=== PATIENT | male | born 1970 | race Caucasian/White ===

== ENCOUNTER 2016-07-05 00:18 | Emergency (ER) | payer OTHER ==
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
[2016-07-05 02:51] VITALS: BP 125/74; PULSE 84; O2SAT 97
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
== END 2016-07-05 02:45 | disposition home or self-care (01) ==
LOC: ED 00:18
DX: S00.432A Contusion of left ear, initial encounter (principal); S06.0X0A Concussion without loss of consciousness, initial encounter; S01.312A Laceration without foreign body of left ear, initial encounter; R51 Headache; Y04.0XXA Assault by unarmed brawl or fight, initial encounter
CPT/HCPCS: 36000; 70450; 72125; 93041; 99284

== ENCOUNTER 2016-10-06 01:06 | Emergency (ER) | payer OTHER ==
[2016-10-06] MEDS ORDERED: Zofran 4 MG/2 ML VIAL IV ONE (01:28)
[2016-10-06] MEDS ORDERED: TORAdol 30 mg Injection IV ONE (01:28)
[2016-10-06] MEDS ORDERED: Sodium Chloride 0.9% 1000 ML 1,000 ML IV STA (01:28)
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
[2016-10-06] MEDS ORDERED: TORAdol 30 mg Injection ONE ×2 (01:35→01:36)
[2016-10-06] MEDS ORDERED: Zofran 4 MG/2 ML VIAL ONE (01:35)
[2016-10-06] MEDS ORDERED: Sodium Chloride 0.9% 1000 ML 1,000 ML ONE (01:36)
[2016-10-06 01:54] LABS: BASOPHIL % 0.2 % (0.0-0.4); Granulocytes % 44.2 % (36.0-66.0); Mean Cell Volume 100.6 fl (78-100); Monocytes % 11.6 % (0.0-12.0); Platelet Count 113 K/mm3 (150-450); Red Blood Count 5.45 M/mm3 (4.1-5.6); Red Cell Distribution Width 12.4 % (11.5-14.0); White Blood Count 8.6 K/mm3 (4.0-10.5)
[2016-10-06 02:00] LABS: Mean Corpuscular Hemoglobin 34.4 pg (26-32)
[2016-10-06 02:02] LABS: ADD URINE CULTURE? NO (NO); Bilirubin NEGATIVE (NEGATIVE); Blood 250 Ery/ul (0-5); COMPLETE URINE MICROSCOPIC? YES; Collection Type CLEAN CATCH; Epithelial Cells FEW /HPF (FEW); Glucose NEGATIVE (NEGATIVE); Leukocyte Esterase NEGATIVE (NEGATIVE)
[2016-10-06 02:20] LABS: ALBUMIN 3.8 g/dL (3.4-5.0); ALKALINE PHOSPHATASE 98 U/L (46-116); ANION GAP 15.7 MEQ/L (5-15); BLOOD UREA NITROGEN 9 mg/dL (9-20); CHLORIDE 104 mEq/L (98-107); Glucose 112 MG/DL (70-110); LIPASE 200 U/L (73-393); Potassium 3.3 mEq/L (3.5-5.1); SGOT/AST 40 U/L (15-37); SGPT/ALT 61 U/L (12-78); SODIUM 142 mEq/L (136-145); Total Protein 8.1 gm/dL (6.4-8.2)
[2016-10-06] MEDS ORDERED: Flomax 0.4 MG PO STA (02:46)
[2016-10-06] MEDS ORDERED: NORCO 5/325 MG PO ONE (02:46)
[2016-10-06] MEDS ORDERED: Flomax 0.4 MG ONE (03:03)
[2016-10-06] MEDS ORDERED: NORCO 5/325 MG ONE (03:03)
[2016-10-06 03:27] VITALS: BP 121/69; PULSE 75; O2SAT 99
--- NOTE | 2016-10-06 09:14 | XRAY ---
Indication: Left flank pain. Dark urine. Multiple contiguous axial images obtained through the abdomen and pelvis without contrast as ordered. Comparison: None Lung bases demonstrates minimal bilateral dependent atelectasis. Heart is not enlarged. There is a 5 mm left mid ureteral calculus, approximately L4 level. More proximal left ureter is prominent and there is mild/moderate hydronephrosis with minimal perinephric stranding and tiny perinephric fluid consistent with obstructive uropathy. Additional bilateral renal micro-calculi. Stomach is distended with food/fluid. Noncontrasted bowel loops appear nonobstructed. Mild descending/sigmoid diverticulosis. Normal appendix. No free fluid/air. Remaining liver, gallbladder, pancreas, spleen, adrenal glands, bladder, and aorta appear unremarkable for noncontrast exam. Osseous structures intact with lumbosacral junction degenerative disc disease. Impression: 1. 5 mm left midureteral calculus producing partial obstruction. Additional bilateral renal micro-calculi. 2. Mild colonic diverticulosis without diverticulitis. Comment: Preliminary interpretation was made by [facility]. No discrepancy. CT DI 17.03
== END 2016-10-06 03:27 | disposition home or self-care (01) ==
LOC: ED 01:06
DX: N20.2 Calculus of kidney with calculus of ureter (principal); R10.9 Unspecified abdominal pain
CPT/HCPCS: 36000; 36415; 74176; 80053; 81000; 83690; 85025; 96360; 96374; 96375; 99284; J1885; J2405; A9270-GY

== ENCOUNTER 2016-12-29 09:27 | Emergency (ER) | payer OTHER ==
--- NOTE | 2016-12-29 09:56 | ERPHSYRPT ---
- History of Present Illness Time Seen by Provider: 12/29/16 09:52 Source: patient, family Exam Limitations: no limitations Patient Subjective Stated Complaint: left sided back pain since last night, .no injury, has hx of chronic back pain,no fever, o difficullty urinating Triage Nursing Assessment: pt walked in, alert, resp easy, skin w/d Physician History: The patient is a 46-year-old male with his father complaining of left-sided low back pain that began last night while in bed. He is a poor historian. He has chronic low back pain. He said back surgeries. He takes only ibuprofen for back pain. He thinks he might have a kidney stone because he had a kidney stone 4 months ago. The kidney stone cause back pain at that time. His past medical history is significant for chronic back pain and kidney stone. His mother and father also had kidney stones. Timing/Duration: today Method of Injury: unknown Quality: sharp, aching Back Pain Location: lumbar spine, paraspinous muscles Severity of Pain-Max: moderate Severity of Pain-Current: moderate Modifying Factors: Improves With: pain medication Associated Symptoms: denies symptoms Previous symptoms: same symptoms as today Allergies/Adverse Reactions: morphine Allergy (Severe, Verified 12/29/16 09:31) BREATHING Home Medications: No Home Meds [No Home Meds] 1 [facility] 11/05/15 [History] Hx Tetanus, Diphtheria Vaccination/Date Given: Yes (2011) Hx Influenza Vaccination/Date Given: No Hx Pneumococcal Vaccination/Date Given: No Immunizations Up to Date: Yes - Review of Systems Constitutional: No Fever, No Chills Eyes: No Symptoms Ears, Nose, & Throat: No Symptoms Respiratory: No Cough, No Dyspnea Cardiac: No Chest Pain, No Edema, No Syncope Abdominal/Gastrointestinal: No Abdominal Pain, No Nausea, No Vomiting, No Diarrhea Genitourinary Symptoms: No Dysuria Musculoskeletal: Back Pain Skin: No Rash Neurological: No Dizziness, No Focal Weakness, No Sensory Changes Psychological: No Symptoms Endocrine: No Symptoms Hematologic/Lymphatic: No Symptoms Immunological/Allergic: No Symptoms All Other Systems: Reviewed and Negative - Past Medical History Pertinent Past Medical History: Yes Neurological History: No Pertinent History ENT History: No Pertinent History Cardiac History: No Pertinent History Respiratory History: No Pertinent History Endocrine Medical History: No Pertinent History Musculoskeletal History: Other GI Medical History: No Pertinent History History: No Pertinent History Psycho-Social History: No Pertinent History Male Reproductive Disorders: No Pertinent History Other Medical History: radicular syndrome lower limbs, mult concussions - Past Surgical History Past Surgical History: Yes Neuro Surgical History: No Pertinent History Cardiac: No Pertinent History Respiratory: No Pertinent History Gastrointestinal: No Pertinent History Genitourinary: No Pertinent History Musculoskeletal: Other Male Surgical History: No Pertinent History Other Surgical History: lower back surgery " shaved part of disc off" - Social History Smoking Status: Current every day smoker How long have you smoked: 33 YEARS Exposure to second hand smoke: Yes Drug Use: none Patient Lives Alone: No - Nursing Vital Signs Nursing Vital Signs: Initial Vital Signs Temperature 98.6 F 12/29/16 09:32 Pulse Rate 88 12/29/16 09:32 Respiratory Rate 16 12/29/16 09:32 Blood Pressure 119/93 12/29/16 09:32 O2 Sat by Pulse Oximetry 96 12/29/16 09:32 Pain Scale Pain Intensity [Back] 7 Pain Intensity 5 - Physical Exam General Appearance: mild distress Eye Exam: PERRL/EOMI, eyes nml inspection Ears, Nose, Throat Exam: normal ENT inspection Neck Exam: normal inspection, non-tender, supple, full range of motion, No meningismus, No midline tenderness Respiratory Exam: normal breath sounds, lungs clear, No respiratory distress Cardiovascular Exam: regular rate/rhythm, normal heart sounds Gastrointestinal Exam: soft, No tenderness, No mass Rectal Exam: not done Back Exam: decreased range of motion Extremity Exam: normal inspection, normal range of motion, No calf tenderness, No pedal edema Neurologic Exam: alert, oriented x 3, cooperative, train master II-XII nml as tested, normal mood/affect, nml station & gait, sensation nml, No motor deficits Skin Exam: normal color, warm, dry, No rash SpO2 Interpretation: normal SpO2: 96 Oxygen Delivery: Room Air - CT Exams Abdomen/Pelvis CT Interpretation: Tele-radiologist Report, Other (5 mm obstructing stone in mid left ureter with severe hydronephrosis per Dr Ribeiro.) Ordered Tests: Active Orders 24 hr Category Date Time Status IV Insertion STAT Care 12/29/16 10:34 Active ABDOMEN AND PELVIS W/0 CONTRAS [CT] Stat Exams 12/29/16 10:35 Completed BMP Stat Lab 12/29/16 10:58 Completed CBC W DIFF Stat Lab 12/29/16 10:58 Completed CULTURE,URINE Stat Lab 12/29/16 09:56 Received LIPASE Stat Lab 12/29/16 10:58 Completed UA W/ MICROSCOPIC Stat Lab 12/29/16 09:56 Completed Medication Summary Discontinued Medications Generic Name Dose Route Start Last Admin Trade Name Yvonne PRN Reason Stop Dose Admin Sodium Chloride 1,000 mls @ 999 mls/hr 12/29/16 10:34 12/29/16 11:09 Sodium Chloride 0.9% 1000 Ml IV 12/29/16 11:34 999 mls/hr .Q1H1M STA Administration Sodium Chloride Confirm 12/29/16 10:59 Sodium Chloride 0.9% 1000 Ml Administered 12/29/16 11:00 Dose 1,000 mls @ ud .ROUTE .STK-MED ONE Ketorolac Tromethamine 30 mg 12/29/16 10:34 12/29/16 11:09 Toradol 30 Mg Injection IV 12/29/16 10:35 30 mg STAT ONE Administration Ketorolac Tromethamine Confirm 12/29/16 10:59 Toradol 30 Mg Injection Administered 12/29/16 11:00 Dose 30 mg .ROUTE .STK-MED ONE Lab/Rad Data: Laboratory Result Diagrams 12/29/16 10:58 12/29/16 10:58 Laboratory Results 12/29/16 12/29/16 12/29/16 Range/Units 10:58 10:58 09:56 WBC 12.0 H (4.0-10.5) K/mm3 RBC 5.14 (4.1-5.6) M/mm3 Hgb 17.4 (12.5-18.0) gm/dl Hct 50.7 H (42-50) % MCV 98.6 (78-100) fl MCH 33.9 H (26-32) pg MCHC 34.3 (32-36) g/dl RDW 12.3 (11.5-14.0) % Plt Count 166 (150-450) K/mm3 MPV 12.1 H (6-9.5) fl Gran % 66.9 H (36.0-66.0) % Lymphocytes % 20.5 L (24.0-44.0) % Monocytes % 11.6 (0.0-12.0) % Eosinophils % 0.7 (0.00-5.0) % Basophils % 0.3 (0.0-0.4) % Basophils # 0.03 (0-0.4) Sodium 141 (136-145) mEq/L Potassium 4.3 (3.5-5.1) mEq/L Chloride 106 (98-107) mEq/L Carbon Dioxide 23.6 (21-32) mEq/L Anion Gap 15.7 H (5-15) MEQ/L BUN 12 (9-20) mg/dL Creatinine 1.29 (0.55-1.30) mg/dl Estimated GFR > 60 ML/MIN Glucose 107 (70-110) MG/DL Calcium 9.1 (8.5-10.1) mg/dL Lipase 167 (73-393) U/L Ur Collection Type VOID Urine Color YELLOW (YELLOW) Urine Appearance CLEAR (CLEAR) Urine pH 7.0 (5-6) Ur Specific Thurmond 1.010 (1.005-1.025) Urine Protein NEGATIVE (Negative) Urine Ketones NEGATIVE (NEGATIVE) Urine Blood 250 (0-5) Adrian/ul Urine Nitrite NEGATIVE (NEGATIVE) Urine Bilirubin NEGATIVE (NEGATIVE) Urine Urobilinogen NORMAL (0-1) mg/dL Ur Leukocyte Esterase TRACE (NEGATIVE) Urine Microscopic RBC 5-10 (0-2) /HPF Urine Microscopic WBC 5-10 (0-5) /HPF Ur Epithelial Cells FEW (FEW) /HPF Urine Bacteria FEW (NEGATIVE) /HPF Urine Glucose NEGATIVE (NEGATIVE) mg/dL Specimen Received 12/29/16 1000 - Progress Progress: improved Counseled pt/family regarding: lab results, diagnosis, rad results - Departure Time of Disposition: 11:50 Departure Disposition: Transfer (transfer to [facility] ER per Dr Bradley.) Clinical Impression: Ureteral stone with hydronephrosis Condition: Stable Critical Care Time: No Referrals: ADELE KITCHEN MD [Primary Care Provider] - Additional Instructions: You have a 5 mm stone in your left ureter that has caused severe hydronephrosis. You have been accepted for transfer at [facility] ER. You are to drive by private car to the ER. Do not have anything to eat or drink. While in the ER here, you were given Toradol 30 mg by IV.
[2016-12-29 10:18] LABS: Bilirubin NEGATIVE (NEGATIVE); Blood 250 Ery/ul (0-5); COMPLETE URINE MICROSCOPIC? YES; Collection Type VOID; Glucose NEGATIVE (NEGATIVE); Leukocyte Esterase TRACE (NEGATIVE)
[2016-12-29 10:25] LABS: ADD URINE CULTURE? YES (NO); Bacteria FEW /HPF (NEGATIVE); Epithelial Cells FEW /HPF (FEW)
[2016-12-29] MEDS ORDERED: Sodium Chloride 0.9% 1000 ML 1,000 ML IV STA (10:34)
[2016-12-29] MEDS ORDERED: TORAdol 30 mg Injection IV ONE (10:34)
[2016-12-29] MEDS ORDERED: Sodium Chloride 0.9% 1000 ML 1,000 ML ONE (10:59)
[2016-12-29] MEDS ORDERED: TORAdol 30 mg Injection ONE (10:59)
[2016-12-29 11:07] LABS: BASOPHIL % 0.3 % (0.0-0.4); Eosinophil % 0.7 % (0.00-5.0); Granulocytes % 66.9 % (36.0-66.0); Lymphocytes % 20.5 % (24.0-44.0); Mean Cell Volume 98.6 fl (78-100); Mean Corpuscular Hemoglobin 33.9 pg (26-32); Mean Platelet Volume 12.1 fl (6-9.5); Monocytes % 11.6 % (0.0-12.0); Platelet Count 166 K/mm3 (150-450); Red Blood Count 5.14 M/mm3 (4.1-5.6); Red Cell Distribution Width 12.3 % (11.5-14.0)
[2016-12-29 11:28] LABS: ANION GAP 15.7 MEQ/L (5-15); BLOOD UREA NITROGEN 12 mg/dL (9-20); CHLORIDE 106 mEq/L (98-107); Carbon Dioxide 23.6 mEq/L (21-32); Glucose 107 MG/DL (70-110); LIPASE 167 U/L (73-393); Potassium 4.3 mEq/L (3.5-5.1); SODIUM 141 mEq/L (136-145)
--- NOTE | 2016-12-29 11:34 | XRAY ---
Indication: Left posterior pain. Nausea and vomiting. History renal stones. Multiple contiguous axial images obtained through the abdomen and pelvis without contrast as using renal stone protocol ordered. Comparison: October 06, 2016. Lung bases again demonstrates minimal bilateral dependent atelectasis. Heart is not enlarged. Previous 5 mm left mid ureteral calculus has slightly moved distally now approximately S2 level, previously L4 level. Proximal left ureter remains prominent with increasing moderate hydronephrosis, increasing perinephric stranding, and increasing tiny perinephric fluid consistent with high-grade obstructive uropathy. There remains bilateral renal calculi. Stomach and noncontrasted bowel loops appear nonobstructed. Mild descending/sigmoid diverticulosis. Normal appendix. No free air. Remaining liver, gallbladder, pancreas, spleen, adrenal glands, bladder, and aorta appear unremarkable for noncontrast exam. Osseous structures intact with lumbosacral junction degenerative disc disease. Impression: 1. Again 5 mm left ureteral calculus which has slightly propagated distally producing high-grade obstruction with worsening hydronephrosis, perinephric stranding, and tiny perinephric fluid. Stable bilateral renal calculi. 2. Stable mild diverticulosis without diverticulitis. CT DI 22.78
[2016-12-29 11:47] VITALS: BP 138/96; PULSE 64; O2SAT 96
== END 2016-12-29 11:58 | disposition home or self-care (01) ==
LOC: ED 09:27
DX: N13.2 Hydronephrosis with renal and ureteral calculous obstruction (principal); M54.5 Low back pain
CPT/HCPCS: 36000; 36415; 74176; 80048; 81000; 83690; 85025; 87086; 96360; 96374; 99283; 99285; J1885

== ENCOUNTER 2021-07-29 08:14 | Observation (INO) | payer OTHER ==
--- NOTE | 2021-07-29 08:33 | ERPHSYRPT ---
- History of Present Illness Time Seen by Provider: 07/29/21 08:20 Historian: patient Exam Limitations: no limitations Patient Subjective Stated Complaint: Chest pain Triage Nursing Assessment: Patient ambulated back to ED and transferred self to bed. Patient A+O X 3. Patient's skin pink, warm and dry. Patient complains of left sided chest pain that started 1.5 hours ago while walking at work. Patient complains of constant aching pain 3/10 that goes down left shoulder/arm. Lungs clear a/p dorina. Patient is daily heavy drinker. Physician History: Patient is a 50-year-old male presents to our ED with complaints of left-sided chest pain. Patient states chest pain started approximately 1.5 hours prior to arrival. Patient was walking at work when pain started. Pain described as an ache at the left chest that tends to radiate to his left shoulder left arm. Pain rated 3 out of 10. Pain associated with dizziness and lightheadedness. Patient is a smoker and drinks alcoholic beverages regularly. No nausea or vom iting. No diaphoresis. No rash. Symptoms are mild to moderate in intensity. Activity worsens symptomology. Patient voices no other complaints or concerns at this time. Timing/Duration: today Activities at Onset: activity Quality: aching Location: other (Left chest) Chest Pain Radiation: arm Severity of Pain-Max: moderate Severity of Pain-Current: mild Modifying Factors: Improves With: other (Activity) Associated Symptoms: dizziness, No diaphoresis Prior Chest Pain/Cardiac Workup: no prior chest pain Nitro Today/Relief: no nitro taken today Aspirin Treatment Today: no aspirin today Allergies/Adverse Reactions: morphine Allergy (Severe, Verified 07/29/21 08:16) BREATHING Home Medications: No Home Meds [No Home Meds] 1 [facility] 11/05/15 [History] Amlodipine Besylate/Benazepril [Amlodipine-Benazepril 2.5-10] 1 tab PO DAILY 0 07/29/21 [History] Hx Tetanus, Diphtheria Vaccination/Date Given: Yes (2011) Hx Influenza Vaccination/Date Given: Yes Hx Pneumococcal Vaccination/Date Given: No Immunizations Up to Date: Yes Travel Risk - International Travel Have you traveled outside of the country in past 3 weeks: No - Coronavirus Screening Are you exhibiting any of the following symptoms?: No Close contact with a COVID-19 positive Pt in past 14-21 Days: No - Vaccine Status Have you recieved a Covid-19 vaccination: Yes 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 - Vaccination Dates Date of 2cond Vaccination (if applicable): na Dates if Unknown: na - Review of Systems Constitutional: No Symptoms, No Fever, No Chills Eyes: No Symptoms Ears, Nose, & Throat: No Symptoms Respiratory: No Symptoms, No Cough, No Dyspnea Cardiac: No Symptoms, No Chest Pain, No Edema, No Syncope Abdominal/Gastrointestinal: No Symptoms, No Abdominal Pain, No Nausea, No Vomiting, No Diarrhea Genitourinary Symptoms: No Symptoms, No Dysuria Musculoskeletal: No Symptoms, No Back Pain, No Neck Pain Skin: No Symptoms, No Rash Neurological: No Symptoms, No Dizziness, No Focal Weakness, No Sensory Changes Psychological: No Symptoms Endocrine: No Symptoms Hematologic/Lymphatic: No Symptoms Immunological/Allergic: No Symptoms All Other Systems: Reviewed and Negative - Past Medical History Pertinent Past Medical History: Yes Neurological History: No Pertinent History ENT History: No Pertinent History Cardiac History: Hypertension Respiratory History: No Pertinent History Endocrine Medical History: No Pertinent History Musculoskeletal History: Other GI Medical History: No Pertinent History History: No Pertinent History Psycho-Social History: No Pertinent History Male Reproductive Disorders: No Pertinent History Other Medical History: radicular syndrome lower limbs, mult concussions - Past Surgical History Past Surgical History: Yes Neuro Surgical History: No Pertinent History Cardiac: No Pertinent History Respiratory: No Pertinent History Gastrointestinal: No Pertinent History Genitourinary: No Pertinent History Musculoskeletal: Other Male Surgical History: No Pertinent History Other Surgical History: lower back surgery " shaved part of disc off" - Social History Smoking Status: Current every day smoker How long have you smoked: 33 YEARS Exposure to second hand smoke: Yes Drug Use: marijuana Patient Lives Alone: No - Nursing Vital Signs Nursing Vital Signs: Initial Vital Signs Temperature 97.8 F 07/29/21 08:16 Pulse Rate 88 07/29/21 08:16 Respiratory Rate 18 07/29/21 08:16 Blood Pressure 136/83 07/29/21 08:16 O2 Sat by Pulse Oximetry 95 07/29/21 08:16 Pain Scale Pain Intensity 2 - Physical Exam General Appearance: no apparent distress, alert Eye Exam: PERRL/EOMI, eyes nml inspection Ears, Nose, Throat Exam: normal ENT inspection, TMs normal, pharynx normal, moist mucous membranes Neck Exam: normal inspection, non-tender, supple, full range of motion Respiratory Exam: normal breath sounds, lungs clear, airway intact, No respiratory distress Cardiovascular Exam: regular rate/rhythm, normal heart sounds, normal peripheral pulses Gastrointestinal/Abdomen Exam: soft, No tenderness, No mass Back Exam: normal inspection, No CVA tenderness, No vertebral tenderness Extremity Exam: normal inspection, normal range of motion Neurologic Exam: alert, oriented x 3, cooperative, normal mood/affect, sensation nml, No motor deficits Skin Exam: normal color, warm, dry Lymphatic Exam: No adenopathy SpO2 Interpretation: normal SpO2: 95 O2 Delivery: Room Air - Course Nursing assessment & vital signs reviewed: Yes EKG Interpreted by Me: RATE, Sinus Tach (Sinus tachycardia rate 100), NORMAL AXIS, NORMAL INTERVALS - Radiology Exams Chest X-ray Interpretation: Teleradiologist Report (Normal heart lungs and bony thorax. Osteopenia) - CT Exams Chest CT Interpretation: Tele-radiologist Report (Negative for PE. Normal CTA chest) Ordered Tests: Active Orders 24 hr Category Date Time Status Welding Rod Coater STAT Care 07/29/21 08:26 Active EKG-ER Only STAT Care 07/29/21 08:25 Active IV Insertion STAT Care 07/29/21 08:25 Active Pulse Oximetry (ED) STAT Care 07/29/21 08:25 Active CHEST 1 VIEW (PORTABLE) Stat Exams 07/29/21 08:26 Completed CHEST WITH CONTRAST [CT] Stat Exams 07/29/21 11:25 Completed CBC W DIFF Stat Lab 07/29/21 08:30 Completed CMP Stat Lab 07/29/21 08:30 Completed D-DIMER QUANTITATIVE Stat Lab 07/29/21 10:00 Completed NT PRO BNP Stat Lab 07/29/21 08:30 Completed TROPONIN Q3H Lab 07/29/21 08:30 Completed TROPONIN Q3H Lab 07/29/21 11:46 Completed TROPONIN Q3H Lab 07/29/21 14:30 Ordered TROPONIN Q3H Lab 07/29/21 17:30 Ordered TROPONIN Q3H Lab 07/29/21 20:30 Ordered Transfer Order Routine Transfer 07/29/21 Ordered Medication Summary Discontinued Medications Generic Name Dose Route Start Last Admin Trade Name Freq PRN Reason Stop Dose Admin Aspirin 324 mg 07/29/21 08:37 04/18/22 08:59 Aspirin 81 Mg Tab.Chew PO 07/29/21 08:38 324 mg STAT ONE Administration Nitroglycerin 1 gm 07/29/21 08:37 07/29/21 08:59 Nitroglycerin 1 Gm Packet TOP 07/29/21 08:38 1 gm STAT ONE Administration Nitroglycerin Confirm 07/29/21 08:58 Nitroglycerin 1 Gm Packet Administered 07/29/21 08:59 Dose 1 gm .ROUTE .STK-MED ONE Lab/Rad Data: Laboratory Result Diagrams 07/29/21 08:30 07/29/21 08:30 Laboratory Results 07/29/21 07/29/21 07/29/21 Range/Units 11:46 10:00 08:48 WBC (4.0-10.5) K/mm3 RBC (4.1-5.6) M/mm3 Hgb (12.5-18.0) gm/dl Hct (42-50) % MCV (78-100) fl MCH (26-32) pg MCHC (32-36) g/dl RDW (11.5-14.0) % Plt Count (150-450) K/mm3 MPV (7.5-11.0) fl Gran % (36.0-66.0) % Eos # (Auto) (0-0.5) Absolute Lymphs (auto) (1.0-4.6) Absolute Monos (auto) (0.0-1.3) Lymphocytes % (24.0-44.0) % Monocytes % (0.0-12.0) % Eosinophils % (0.00-5.0) % Basophils % (0.0-0.4) % Absolute Granulocytes (1.4-6.9) Basophils # (0-0.4) D-Dimer 745 H* (215-500) ng/mL Sodium (137-145) mmol/L Potassium (3.5-5.1) mmol/L Chloride (98-107) mmol/L Carbon Dioxide (22-30) mmol/L Anion Gap (5-15) MEQ/L BUN (9-20) mg/dL Creatinine (0.66-1.25) mg/dL Estimated GFR ML/MIN Glucose (74-106) mg/dL Calcium (8.4-10.2) mg/dL Total Bilirubin (0.2-1.3) mg/dL AST (17-59) U/L ALT (0-50) U/L Alkaline Phosphatase (38-126) U/L Troponin I < 0.012 (0.000-0.034) ng/mL NT-Pro-B Natriuret Pep (0-900) pg/mL Serum Total Protein (6.3-8.2) g/dL Albumin (3.5-5.0) g/dL Influenza Type A Ag NEGATIVE (NEGATIVE) Influenza Type B Ag NEGATIVE (NEGATIVE) RSV (PCR) NEGATIVE (Negative) SARS-CoV-2 (PCR) NEGATIVE (NEGATIVE) Slides for Path Review 07/29/21 07/29/21 07/29/21 Range/Units 08:30 08:30 08:30 WBC 7.0 (4.0-10.5) K/mm3 RBC 4.55 (4.1-5.6) M/mm3 Hgb 16.2 (12.5-18.0) gm/dl Hct 47.3 (42-50) % MCV 104.0 H (78-100) fl MCH 35.6 H (26-32) pg MCHC 34.2 (32-36) g/dl RDW 12.3 (11.5-14.0) % Plt Count 77 L (150-450) K/mm3 MPV 13.8 H (7.5-11.0) fl Gran % 38.6 (36.0-66.0) % Eos # (Auto) 0.28 (0-0.5) Absolute Lymphs (auto) 3.12 (1.0-4.6) Absolute Monos (auto) 0.90 (0.0-1.3) Lymphocytes % 44.3 H (24.0-44.0) % Monocytes % 12.8 H (0.0-12.0) % Eosinophils % 4.0 (0.00-5.0) % Basophils % 0.3 (0.0-0.4) % Absolute Granulocytes 2.72 (1.4-6.9) Basophils # 0.02 (0-0.4) D-Dimer (215-500) ng/mL Sodium 139 (137-145) mmol/L Potassium 3.8 (3.5-5.1) mmol/L Chloride 107 (98-107) mmol/L Carbon Dioxide 19 L (22-30) mmol/L Anion Gap 17.2 H (5-15) MEQ/L BUN 14 (9-20) mg/dL Creatinine 0.62 L (0.66-1.25) mg/dL Estimated GFR > 60.0 ML/MIN Glucose 99 (74-106) mg/dL Calcium 8.8 (8.4-10.2) mg/dL Total Bilirubin 1.40 H (0.2-1.3) mg/dL AST 91 H (17-59) U/L ALT 72 H (0-50) U/L Alkaline Phosphatase 105 (38-126) U/L Troponin I 0.019 (0.000-0.034) ng/mL NT-Pro-B Natriuret Pep 50.6 (0-900) pg/mL Serum Total Protein 8.5 H (6.3-8.2) g/dL Albumin 3.9 (3.5-5.0) g/dL Influenza Type A Ag (NEGATIVE) Influenza Type B Ag (NEGATIVE) RSV (PCR) (Negative) SARS-CoV-2 (PCR) (NEGATIVE) Slides for Path Review YES - Progress Progress: improved Air Movement: good Progress Note: Patient reassessed. No active chest pain. Liver enzymes marginally elevated likely due to history of significant alcohol use. Initial troponin negative. In light of patient's age, cardiac risk factors, smoking history, high blood pressure and nature of symptomology we will admit patient to rule out Case discussed with Dr. Oliva covering Dr. Kitchen Who accepts admission to observation. Plan of care discussed with patient. He agrees to admission at [facility] for further evaluation and treatment. COVID test negative Portions of this note were created with voice recognition technology. There may be grammatical, spelling, punctuation or sound alike errors 07/29/21 10:13 Dr. Oliva requesting a D-dimer. Results pending. 07/29/21 10:26 Blood Culture(s) Obtained: No Antibiotics given: No Discussed with : Beth Will see patient in: hospital (observation) Counseled pt/family regarding: lab results, diagnosis, rad results - Departure Departure Disposition: Observation Clinical Impression: ACS (acute coronary syndrome), Chest pain, Alcohol use, Osteopenia, Thrombocytopenia Condition: Stable Critical Care Time: No Referrals: ADELE KITCHEN MD [Primary Care Provider] - Follow up/PCP as directed
[2021-07-29] MEDS ORDERED: NITRO-BID 2% UD PACKETS TOP ONE (08:37)
[2021-07-29] MEDS ORDERED: BABY ASPIRIN 81 MG CHEW PO ONE (08:37)
[2021-07-29 08:57] LABS: Absolute Neutrophil Ct (ANC) 2.72 (1.4-6.9); Basophil (Absolute #) 0.02 (0-0.4); Eosinophil (Absolute #) 0.28 (0-0.5); Hematocrit 47.3 % (42-50); Hemoglobin 16.2 gm/dl (12.5-18.0); Lymphocyte (Absolute #) 3.12 (1.0-4.6); Lymphocytes % 44.3 % (24.0-44.0); Mean Corpuscular Hemoglobin 35.6 pg (26-32); Mean Corpuscular Hgb Concent. 34.2 g/dl (32-36); Mean Platelet Volume 13.8 fl (7.5-11.0); Monocytes % 12.8 % (0.0-12.0); Neutrophil % 38.6 % (36.0-66.0); Platelet Count 77 K/mm3 (150-450); Red Blood Count 4.55 M/mm3 (4.1-5.6); Red Cell Distribution Width 12.3 % (11.5-14.0)
[2021-07-29] MEDS ORDERED: NITRO-BID 2% UD PACKETS ONE (08:58)
[2021-07-29 09:10] LABS: ALBUMIN 3.9 g/dL (3.5-5.0); ALKALINE PHOSPHATASE 105 U/L (38-126); ANION GAP 17.2 MEQ/L (5-15); BLOOD UREA NITROGEN 14 mg/dL (9-20); CHLORIDE 107 mmol/L (98-107); Calcium 8.8 mg/dL (8.4-10.2); Carbon Dioxide 19 mmol/L (22-30); Creatinine 1 0.62 mg/dL (0.66-1.25); EST GLOMERULAR FILTRATION RATE > 60.0 ML/MIN; Glucose 99 mg/dL (74-106); NT PRO BNP 50.6 pg/mL (0-900); Potassium 3.8 mmol/L (3.5-5.1); SGOT/AST 91 U/L (17-59); SGPT/ALT 72 U/L (0-50); SODIUM 139 mmol/L (137-145); Total Protein 8.5 g/dL (6.3-8.2)
--- NOTE | 2021-07-29 09:27 | XRAY ---
Indication: Left chest pain. Comparison: June 15, 2020. Portable apical lordotic chest again demonstrates normal heart and lungs. Bony thorax intact with mild osteopenia. No new/acute findings.
[2021-07-29 09:33] LABS: INFLUENZA A NEGATIVE (NEGATIVE); INFLUENZA B NEGATIVE (NEGATIVE); RESPIRATORY SYNCTIAL VIRUS NEGATIVE (Negative); SARS-CoV-2 Xpert Express NEGATIVE (NEGATIVE)
[2021-07-29 11:27] LABS: Slide Review 1 YES
--- NOTE | 2021-07-29 11:59 | XRAY ---
Indication: Chest pain. Short of breath. Elevated d-dimer. Multiple contiguous images obtained through the chest using 100 cc Isovue 370 contrast and PE protocol. Comparison: None There is good opacification of the pulmonary arteries to include the lobar and segmental branches. No pulmonary embolus. Heart is not enlarged. Aorta is normal in course and caliber. No pathologic mediastinal/hilar lymphadenopathy. Lungs inflated and clear. Bony thorax intact. Limited upper abdomen including adrenal glands are unremarkable. Impression: Normal CT PE exam.
[2021-07-29] MEDS ORDERED: MILK OF MAGNESIA 30 ML PO PRN (12:40)
[2021-07-29] MEDS ORDERED: Zofran 4 MG/2 ML VIAL IV PRN (12:40)
[2021-07-29] MEDS ORDERED: MAALOX ES 30 ML UNIT DOSE PO PRN (12:40)
[2021-07-29] MEDS ORDERED: Senokot-S Tablet PO PRN (12:40)
[2021-07-29] MEDS ORDERED: TYLENOL 325 MG PO PRN (12:40)
--- NOTE | 2021-07-29 20:49 | PCM.HP ---
History of Present Illness - Chief Complaint Chief Complaint: SOB . chest pain. tremors. History of Present Illness: is a 50 year old male patient of Dr Shah. States he was having dizziness and saw Dr Shah 2 weeks ago,B/P was up and a new Rx was started. Patient developed left sided chest pain and dizziness while at work today and presented to ER. PMHx includes HTN, current smoker,daily ETOH beer or Bradley/Vodka. - Review of Systems Constitutional: No Symptoms Eyes: No Symptoms Ears, Nose, & Throat: No Symptoms Respiratory: No Symptoms Cardiac: Chest Pain (no edema) Abdominal/Gastrointestinal: No Symptoms Genitourinary Symptoms: No Symptoms Musculoskeletal: No Symptoms Skin: No Symptoms Neurological: No Symptoms Psychological: Alcohol Abuse (denies depression,states work is stressful but he does like his job) Endocrine: No Symptoms Medications & Allergies Home Medications: Home Medication List No Home Meds [No Home Meds] 1 ea MC UD 11/05/15 [History Confirmed 07/29/21] Amlodipine Besylate/Benazepril [Amlodipine-Benazepril 2.5-10] 1 tab PO DAILY 07/29/21 [History Confirmed 07/29/21] Allergies/Adverse Reactions: Allergies Allergy/AdvReac Type Severity Reaction Status Date / Time morphine Allergy Severe BREATHING Verified 07/29/21 08:16 - Past Medical History Past Medical History: Yes Neurological History: No Pertinent History ENT History: No Pertinent History Cardiac History: Hypertension Respiratory History: No Pertinent History Endocrine Medical History: No Pertinent History GI Medical History: No Pertinent History History: No Pertinent History Pyscho-Social History: No Pertinent History Male Reproductive Disorders: No Pertinent History Comment: radicular syndrome lower limbs, mult concussions - Past Surgical History Past Surgical History: Yes Neuro Surgical History: No Pertinent History Cardiac History: No Pertinent History Respiratory Surgery: No Pertinent History GI Surgical History: No Pertinent History Genitourinary Surgical Hx: No Pertinent History Musculskeletal Surgical Hx: Other Male Surgical History: No Pertinent History Other Surgical History: lower back surgery " shaved part of disc off" - Social History Smoking Status: Current every day smoker How long have you smoked: 40 years Exposure to second hand smoke: Yes Alcohol: Heavy, Daily Drug Use: marijuana - Physical Exam Vital Signs: Vital Signs - 24 hr Temp Pulse Resp BP Pulse Ox 04/18/22 19:10 99.3 F 88 16 123/76 90 L 07/29/21 16:15 98.4 F 71 17 113/64 94 L 07/29/21 12:49 999.3 F 75 19 121/73 95 07/29/21 12:40 95 07/29/21 12:18 95 07/29/21 12:07 69 113/65 97 07/29/21 11:04 68 17 109/71 96 07/29/21 10:03 73 15 103/68 93 L 07/29/21 08:28 96 07/29/21 08:16 97.8 F 88 18 136/83 95 General Appearance: no apparent distress Neurologic Exam: alert, oriented x 3, cooperative, normal mood/affect (very pleasant) Eye Exam: eyes nml inspection Ears, Nose, Throat Exam: normal ENT inspection Neck Exam: normal inspection Respiratory Exam: normal breath sounds Cardiovascular Exam: regular rate/rhythm Gastrointestinal/Abdomen Exam: soft, normal bowel sounds (nontender) Rectal Exam: not done Back Exam: normal inspection Extremity Exam: normal inspection Skin Exam: normal color, warm, dry Results - Labs Lab/Micro Results: Lab Results-Last 24 Hours 07/29/21 07/29/21 07/29/21 Range/Units 08:30 08:30 08:30 WBC 7.0 (4.0-10.5) K/mm3 RBC 4.55 (4.1-5.6) M/mm3 Hgb 16.2 (12.5-18.0) gm/dl Hct 47.3 (42-50) % MCV 104.0 H (78-100) fl MCH 35.6 H (26-32) pg MCHC 34.2 (32-36) g/dl RDW 12.3 (11.5-14.0) % Plt Count 77 L (150-450) K/mm3 MPV 13.8 H (7.5-11.0) fl Gran % 38.6 (36.0-66.0) % Eos # (Auto) 0.28 (0-0.5) Absolute Lymphs (auto) 3.12 (1.0-4.6) Absolute Monos (auto) 0.90 (0.0-1.3) Lymphocytes % 44.3 H (24.0-44.0) % Monocytes % 12.8 H (0.0-12.0) % Eosinophils % 4.0 (0.00-5.0) % Basophils % 0.3 (0.0-0.4) % Absolute Granulocytes 2.72 (1.4-6.9) Basophils # 0.02 (0-0.4) D-Dimer (215-500) ng/mL Sodium 139 (137-145) mmol/L Potassium 3.8 (3.5-5.1) mmol/L Chloride 107 (98-107) mmol/L Carbon Dioxide 19 L (22-30) mmol/L Anion Gap 17.2 H (5-15) MEQ/L BUN 14 (9-20) mg/dL Creatinine 0.62 L (0.66-1.25) mg/dL Estimated GFR > 60.0 ML/MIN Glucose 99 (74-106) mg/dL Calcium 8.8 (8.4-10.2) mg/dL Total Bilirubin 1.40 H (0.2-1.3) mg/dL AST 91 H (17-59) U/L ALT 72 H (0-50) U/L Alkaline Phosphatase 105 (38-126) U/L Troponin I 0.019 (0.000-0.034) ng/mL NT-Pro-B Natriuret Pep 50.6 (0-900) pg/mL Serum Total Protein 8.5 H (6.3-8.2) g/dL Albumin 3.9 (3.5-5.0) g/dL Influenza Type A Ag (NEGATIVE) Influenza Type B Ag (NEGATIVE) RSV (PCR) (Negative) SARS-CoV-2 (PCR) (NEGATIVE) Slides for Path Review YES 07/29/21 07/29/21 07/29/21 Range/Units 08:48 10:00 11:46 WBC (4.0-10.5) K/mm3 RBC (4.1-5.6) M/mm3 Hgb (12.5-18.0) gm/dl Hct (42-50) % MCV (78-100) fl MCH (26-32) pg MCHC (32-36) g/dl RDW (11.5-14.0) % Plt Count (150-450) K/mm3 MPV (7.5-11.0) fl Gran % (36.0-66.0) % Eos # (Auto) (0-0.5) Absolute Lymphs (auto) (1.0-4.6) Absolute Monos (auto) (0.0-1.3) Lymphocytes % (24.0-44.0) % Monocytes % (0.0-12.0) % Eosinophils % (0.00-5.0) % Basophils % (0.0-0.4) % Absolute Granulocytes (1.4-6.9) Basophils # (0-0.4) D-Dimer 745 H* (215-500) ng/mL Sodium (137-145) mmol/L Potassium (3.5-5.1) mmol/L Chloride (98-107) mmol/L Carbon Dioxide (22-30) mmol/L Anion Gap (5-15) MEQ/L BUN (9-20) mg/dL Creatinine (0.66-1.25) mg/dL Estimated GFR ML/MIN Glucose (74-106) mg/dL Calcium (8.4-10.2) mg/dL Total Bilirubin (0.2-1.3) mg/dL AST (17-59) U/L ALT (0-50) U/L Alkaline Phosphatase (38-126) U/L Troponin I < 0.012 (0.000-0.034) ng/mL NT-Pro-B Natriuret Pep (0-900) pg/mL Serum Total Protein (6.3-8.2) g/dL Albumin (3.5-5.0) g/dL Influenza Type A Ag NEGATIVE (NEGATIVE) Influenza Type B Ag NEGATIVE (NEGATIVE) RSV (PCR) NEGATIVE (Negative) SARS-CoV-2 (PCR) NEGATIVE (NEGATIVE) Slides for Path Review 07/29/21 07/29/21 Range/Units 14:55 17:56 WBC (4.0-10.5) K/mm3 RBC (4.1-5.6) M/mm3 Hgb (12.5-18.0) gm/dl Hct (42-50) % MCV (78-100) fl MCH (26-32) pg MCHC (32-36) g/dl RDW (11.5-14.0) % Plt Count (150-450) K/mm3 MPV (7.5-11.0) fl Gran % (36.0-66.0) % Eos # (Auto) (0-0.5) Absolute Lymphs (auto) (1.0-4.6) Absolute Monos (auto) (0.0-1.3) Lymphocytes % (24.0-44.0) % Monocytes % (0.0-12.0) % Eosinophils % (0.00-5.0) % Basophils % (0.0-0.4) % Absolute Granulocytes (1.4-6.9) Basophils # (0-0.4) D-Dimer (215-500) ng/mL Sodium (137-145) mmol/L Potassium (3.5-5.1) mmol/L Chloride (98-107) mmol/L Carbon Dioxide (22-30) mmol/L Anion Gap (5-15) MEQ/L BUN (9-20) mg/dL Creatinine (0.66-1.25) mg/dL Estimated GFR ML/MIN Glucose (74-106) mg/dL Calcium (8.4-10.2) mg/dL Total Bilirubin (0.2-1.3) mg/dL AST (17-59) U/L ALT (0-50) U/L Alkaline Phosphatase (38-126) U/L Troponin I < 0.012 < 0.012 (0.000-0.034) ng/mL NT-Pro-B Natriuret Pep (0-900) pg/mL Serum Total Protein (6.3-8.2) g/dL Albumin (3.5-5.0) g/dL Influenza Type A Ag (NEGATIVE) Influenza Type B Ag (NEGATIVE) RSV (PCR) (Negative) SARS-CoV-2 (PCR) (NEGATIVE) Slides for Path Review - Radiology Impressions Radiology Exams & Impressions: Radiology Procedures Category Date Time Status CHEST 1 VIEW (PORTABLE) Stat Exams 07/29/21 08:26 Completed CHEST WITH CONTRAST [CT] Stat Exams 07/29/21 11:25 Completed - Other Procedures and Tests Respiratory Therapy 07/30/21 05:00 EKG ROUTINE 07/31/21 05:00 EKG ROUTINE 08/01/21 05:00 EKG ROUTINE Assessment/Plan (1) Chest pain Current Visit: Yes Status: Resolved Assessment & Plan: resolved after tx in ER Code(s): R07.9 - CHEST PAIN, UNSPECIFIED (2) Dizziness Current Visit: Yes Status: Resolved Code(s): R42 - DIZZINESS AND GIDDINESS (3) HTN (hypertension) Current Visit: Yes Status: Chronic Assessment & Plan: moniter Code(s): I10 - ESSENTIAL (PRIMARY) HYPERTENSION (4) Alcohol use Current Visit: Yes Status: Chronic Assessment & Plan: discussed ETOH abuse consequences and help if needed Code(s): Z72.89 - OTHER PROBLEMS RELATED TO LIFESTYLE (5) Smoker Current Visit: Yes Status: Chronic Assessment & Plan: states trying to quit uses nicotene lozenge Code(s): F17.200 - NICOTINE DEPENDENCE, UNSPECIFIED, UNCOMPLICATED
[2021-07-29 21:53] LABS: AMYLASE 80 U/L (30-110); LIPASE 324 U/L (23-300)
[2021-07-29] MEDS ORDERED: Ativan 0.5 MG PO PRN (22:01)
[2021-07-30 05:41] LABS: Risk Ratio 5.5
[2021-07-30] MEDS ORDERED: AMLODIPINE BESYLATE PO SCH (10:00)
[2021-07-30] MEDS ORDERED: [UNRECOGNIZED DRUG - OTHER] PO SCH (10:00)
[2021-07-30] MEDS ORDERED: Lotensin 10 MG PO SCH (10:00)
[2021-07-30] MEDS ORDERED: NORVASC 5 MG PO SCH (10:00)
[2021-07-30 16:41] VITALS: BP 113/78; PULSE 76; O2SAT 96
--- NOTE | 2021-07-30 16:42 | PCM.DS ---
Discharge Summary Date of Admission: 07/29/21 12:33 Admitting Physician: AMPARO FREEDMAN DO Consults: Consults on Case 07/30/21 09:42 Diet Consult [Nutritional Consult] ROUTINE Primary Care Provider: ADELE KITCHEN Allergies Allergies morphine Allergy (Severe, Verified 07/29/21 08:16) BREATHING Hospital Summary - Hospital Course Hospital Course: Pt is a 50 yo male pt of Dr. Kitchen who was admitted through ER with CP to rule out UT. His troponins were negative. D-dimer was elevated but CT chest neg for PE. He does have family history of CAD. 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 He is a smoker and daily alcohol drinker. - Vitals & Intake/Output Vital Signs: Vital Signs Temperature 98.6 F 07/30/21 12:00 Pulse Rate 82 07/30/21 12:00 Respiratory Rate 16 07/30/21 12:00 Blood Pressure 117/73 07/30/21 12:00 O2 Sat by Pulse Oximetry 95 07/30/21 12:00 Intake & Output: Intake & Output 07/28/21 07/29/21 07/30/21 07/31/21 11:59 11:59 11:59 11:59 Intake Total 1500 480 Output Total 750 500 Balance 750 -20 Weight 95.254 kg 89.6 kg - Lab Result Diagrams: 07/29/21 08:30 07/29/21 08:30 Lab Results-Last 24 Hrs: Lab Results-Last 24 Hours 07/29/21 07/29/21 07/29/21 Range/Units 08:30 17:56 20:35 WBC 7.0 (4.0-10.5) K/mm3 RBC 4.55 (4.1-5.6) M/mm3 Hgb 16.2 (12.5-18.0) gm/dl Hct 47.3 (42-50) % MCV 104.0 H (78-100) fl MCH 35.6 H (26-32) pg MCHC 34.2 (32-36) g/dl RDW 12.3 (11.5-14.0) % Plt Count 77 L (150-450) K/mm3 MPV 13.8 H (7.5-11.0) fl Gran % 38.6 (36.0-66.0) % Eos # (Auto) 0.28 (0-0.5) Absolute Lymphs (auto) 3.12 (1.0-4.6) Absolute Monos (auto) 0.90 (0.0-1.3) Lymphocytes % 44.3 H (24.0-44.0) % Monocytes % 12.8 H (0.0-12.0) % Eosinophils % 4.0 (0.00-5.0) % Basophils % 0.3 (0.0-0.4) % Absolute Granulocytes 2.72 (1.4-6.9) Basophils # 0.02 (0-0.4) Smear Path Review Troponin I < 0.012 < 0.012 (0.000-0.034) ng/mL Triglycerides (30-150) mg/dL Cholesterol (50-200) mg/dL LDL Cholesterol (30-100) mg/dL HDL Cholesterol (40-60) mg/dL Heart Disease Risk Ratio Amylase (30-110) U/L Lipase (23-300) U/L Slides for Path Review YES 07/29/21 07/30/21 Range/Units 20:54 04:15 WBC (4.0-10.5) K/mm3 RBC (4.1-5.6) M/mm3 Hgb (12.5-18.0) gm/dl Hct (42-50) % MCV (78-100) fl MCH (26-32) pg MCHC (32-36) g/dl RDW (11.5-14.0) % Plt Count (150-450) K/mm3 MPV (7.5-11.0) fl Gran % (36.0-66.0) % Eos # (Auto) (0-0.5) Absolute Lymphs (auto) (1.0-4.6) Absolute Monos (auto) (0.0-1.3) Lymphocytes % (24.0-44.0) % Monocytes % (0.0-12.0) % Eosinophils % (0.00-5.0) % Basophils % (0.0-0.4) % Absolute Granulocytes (1.4-6.9) Basophils # (0-0.4) Smear Path Review Troponin I (0.000-0.034) ng/mL Triglycerides 267 H (30-150) mg/dL Cholesterol 162 (50-200) mg/dL LDL Cholesterol 78 (30-100) mg/dL HDL Cholesterol 30 L (40-60) mg/dL Heart Disease Risk Ratio 5.5 Amylase 80 (30-110) U/L Lipase 324 H (23-300) U/L Slides for Path Review - Radiology Exams Ordered Rad Exams-Entire Visit: Radiology Procedures Category Date Time Status CHEST 1 VIEW (PORTABLE) Stat Exams 07/29/21 08:26 Completed CHEST WITH CONTRAST [CT] Stat Exams 07/29/21 11:25 Completed - Procedures and Test Procedures and Tests throughout Hospitalization: Therapy Orders & Screens 07/29/21 13:08 OT Screen per Nursing Assess ONCE Comment: Protocol Order Physician Instructions: Greater than 3 points order OT Admission Screening Reason For Exam: Triggered on Admission Diagnosis: SOB . chest pain. tremors. Open Wound/Cellutlitis/Pressure Ulcers: No Acute Fx/ORIF/Change in wt bearing status: No Severe MUSCULOSKELETAL pain: Yes ADL Dysfunction: No Acute CVA w/Hemiparesis/Hemiplegia: No Decreased Functional Mobility/Strength: No Sprain/Strain: No Acute Post-op Mobility Dysfunction: No Total Points: 5 PT Screen per Nursing Assess ONCE Comment: Protocol Order Physician Instructions: Greater than 3 points order PT Admission Screenin Reason For Exam: Triggered on Admission Diagnosis: SOB . chest pain. tremors. Open Wound/Cellutlitis/Pressure Ulcers: No Acute Fx/ORIF/Change in wt bearing status: No Severe MUSCULOSKELETAL pain: Yes ADL Dysfunction: No Acute CVA w/Hemiparesis/Hemiplegia: No Decreased Functional Mobility/Strength: No Sprain/Strain: No Acute Post-op Mobility Dysfunction: No Total Points: 5 Smoking Cessation Education ONCE Comment: Diagnosis: SOB . chest pain. tremors. Smoking Status: Current every day smoker How long have you smoked: 40 years Have you smoked in the past 12 months: Yes Approximately how many cigarettes per day: 1/2 pack Do you dip or chew tobacco: No 07/29/21 16:18 EKG ROUTINE Comment: Diagnosis: Chest pain, ACS 07/30/21 05:00 EKG ROUTINE Comment: Diagnosis: Chest pain, ACS 07/31/21 05:00 EKG ROUTINE Comment: Diagnosis: Chest pain, ACS 08/01/21 05:00 EKG ROUTINE Comment: Diagnosis: Chest pain, ACS Discharge Exam General Appearance: no apparent distress, alert Neurologic Exam: oriented x 3, cooperative Eye Exam: eyes nml inspection Ears, Nose, Throat Exam: moist mucous membranes Neck Exam: normal inspection Respiratory Exam: normal breath sounds, lungs clear, No crackles/rales, No rhonchi, No wheezing Cardiovascular Exam: regular rate/rhythm, normal heart sounds, No murmur Gastrointestinal/Abdomen Exam: soft, normal bowel sounds, No tenderness, No distention, No mass, No guarding, No rebound Extremity Exam: normal inspection, No pedal edema, No swelling Skin Exam: normal color, warm, dry, No rash Final Diagnosis/Problem List - Final Discharge Diagnosis/Problem (1) Alcohol use Current Visit: Yes Status: Chronic Code(s): Z72.89 - OTHER PROBLEMS RELATED TO LIFESTYLE (2) HTN (hypertension) Current Visit: Yes Status: Chronic Code(s): I10 - ESSENTIAL (PRIMARY) HYPERTENSION (3) Chest pain Current Visit: Yes Status: Resolved Code(s): R07.9 - CHEST PAIN, UNSPECIFIED - Discharge Disposition: Home, Self-Care Condition: Stable Prescriptions: Continue No Home Meds [No Home Meds] 1 ea MC UD Amlodipine Besylate/Benazepril [Amlodipine-Benazepril 2.5-10] 1 tab PO DAILY Instructions: Chest Pain (DC) Additional Instructions: OUTPATIENT CARDIAC CALCIUM SCORING SCHEDULED 08/05/2021 AT 1:30 PM. NO FOOD, NICOTINE, OR CAFFEINE 4-6 HOURS PRIOR TO EXAM. We recommend you stop smoking! Contact your doctor for help in the form of med icines or patches. We recommend you only drink alcohol in moderation - speak with your doctor about strategies to cut down your alcohol use safely. Follow up with: SAMMY LOFTON [CONSULTING PHYSICIAN] - 08/14/21 10:00 am ADELE KITCHEN MD [Primary Care Provider] - 08/01/21 4:00 pm ([facility]) Forms: Discharge Instructions
== END 2021-07-30 16:57 | disposition home or self-care (01) ==
LOC: ED 08:14 → MED SURG 12:33
PROVIDERS: ADMIT Family Medicine; ATTEND General Practice
DX: R07.9 Chest pain, unspecified (principal); Z72.89 Other problems related to lifestyle; I10 Essential (primary) hypertension; Z72.0 Tobacco use; R42 Dizziness and giddiness; Z20.828 Contact with and (suspected) exposure to other viral communicable diseases
CPT/HCPCS: 0241U; 36000; 36415; 71045; 71260; 80053; 80061; 82150; 83690; 83721; 83880; 84484; 85025; 85379; 93005; 93041; 93268; 94760; 99284; G0378; A9270-GY

== ENCOUNTER 2023-03-11 14:16 | Day surgery (SDC) | payer OTHER ==
[2011-12-07 15:49] VITALS: BP 131/92
[2023-03-11] MEDS ORDERED: Decadron 4 MG INJ IV ONE (14:17)
[2023-03-11] MEDS ORDERED: Sodium Chloride 0.9(Preservative Free) 10 ML IJ ONE (14:17)
[2023-03-11] MEDS ORDERED: DIPRIVAN 200 MG/20 ML IV ONE (16:20)
[2023-03-11] MEDS ORDERED: Versed 2 MG/2 ML Injection ONE (16:20)
[2023-03-11] MEDS ORDERED: Lactated Ringers 1,000 ML IV ONE (16:47)
--- NOTE | 2023-03-11 20:57 | XRAY ---
Indication: Right L4-S1 transforaminal ENRIKE. Intraoperative fluoroscopy provided for 23 seconds. 5 digital spot image submitted for interpretation demonstrates posterior needle tip projecting over the expected right L4 and L5 nerve roots. Small amount of contrast injected for needle tip placement. Correlate with intraoperative findings/report.
--- NOTE | 2023-03-11 21:43 | XRAY ---
23 seconds of fluoroscopy was used in surgery for a right L4-S1 transforaminal ENRIKE.
== END 2023-03-11 16:50 | disposition home or self-care (01) ==
LOC: SDC-PAIN 14:16
PROVIDERS: ATTEND Psychiatry & Neurology Pain Medicine
DX: M54.16 Radiculopathy, lumbar region (principal); Z79.899 Other long term (current) drug therapy
CPT/HCPCS: 64483; 64484; 72100; 77003; 82947; J1100; J2250; J2704; Q9966

== ENCOUNTER 2023-09-30 06:22 | Day surgery (SDC) | payer OTHER ==
[2011-12-07 15:49] VITALS: BP 131/92
[2023-09-30] MEDS ORDERED: XYLOCAINE-MPF 1% 5ML SDV IJ ONE (06:23)
[2023-09-30] MEDS ORDERED: Versed 2 MG/2 ML Injection ONE (08:04)
[2023-09-30] MEDS ORDERED: DIPRIVAN 200 MG/20 ML IV ONE (08:05)
[2023-09-30] MEDS ORDERED: BACIGUENT 30 GM ONE (08:46)
--- NOTE | 2023-09-30 10:24 | XRAY ---
Indication: Spinal cord stimulator trial. Intraoperative fluoroscopy provided for 1 minute 26 seconds. 7 digital spot images submitted for interpretation demonstrates introducer needle tip posterior to thoracolumbar junction. Ultimate insertion of a single epidural lead with tip terminating approximately T6-T7 interspace level. Correlate with intraoperative findings/report.
--- NOTE | 2023-09-30 11:03 | XRAY ---
One minute and 26 seconds of fluoroscopy was used in surgery for a spinal cord stimulator trial.
[2023-09-30] MEDS ORDERED: Lactated Ringers 1,000 ML IV ONE (12:10)
== END 2023-09-30 09:12 | disposition home or self-care (01) ==
LOC: SDC-PAIN 06:22
PROVIDERS: ATTEND Psychiatry & Neurology Pain Medicine
DX: M96.1 Postlaminectomy syndrome, not elsewhere classified (principal)
CPT/HCPCS: 63650; 72100; 77002; C1897; J2250; J2704; A9270-GY

== ENCOUNTER 2023-10-25 14:03 | Emergency (ER) | payer OTHER ==
[2023-10-25 14:16] VITALS: TEMP 98.9
--- NOTE | 2023-10-25 14:17 | ERPHSYRPT ---
- History of Present Illness Time Seen by Provider: 10/25/23 14:03 Historian: patient Exam Limitations: no limitations Physician History: For the past 7.5 hours pt has had intermittent achy 2/10 left anterior chest pain and generalized weakness; denies shortness of air, fever, nausea, vomiting, abdominal pain. Aspirin Treatment Today: 81 mg x 4, provided by ED Allergies/Adverse Reactions: morphine Allergy (Severe, Verified 10/25/23 14:12) BREATHING Home Medications: Amlodipine Besylate/Benazepril [Amlodipine-Benazepril 2.5-10] 1 tab PO DAILY 07/29/21 [History] Hx Tetanus, Diphtheria Vaccination/Date Given: Yes (2011) Hx Influenza Vaccination/Date Given: Yes Hx Pneumococcal Vaccination/Date Given: No - Review of Systems Constitutional: No Fever, No Chills Respiratory: Cough (chronic for years), No Dyspnea Cardiac: No Chest Pain Abdominal/Gastrointestinal: No Abdominal Pain, No Nausea, No Vomiting Neurological: No Headache - Past Medical History Pertinent Past Medical History: Yes Neurological History: Other ENT History: No Pertinent History Cardiac History: Hypertension, Myocardial Infarction (OR) Respiratory History: No Pertinent History Endocrine Medical History: No Pertinent History Musculoskeletal History: Degenerative Disk Disease GI Medical History: No Pertinent History History: No Pertinent History Psycho-Social History: No Pertinent History Male Reproductive Disorders: No Pertinent History Other Medical History: SX HX: LAMINECTOMY, TONSILLECTOMY - Past Surgical History Past Surgical History: Yes Neuro Surgical History: No Pertinent History Cardiac: No Pertinent History Respiratory: No Pertinent History Gastrointestinal: No Pertinent History Genitourinary: No Pertinent History Musculoskeletal: Other Male Surgical History: No Pertinent History Other Surgical History: lower back surgery " shaved part of disc off" - Social History Smoking Status: Current every day smoker How long have you smoked: 40 years Exposure to second hand smoke: Yes Drug Use: marijuana Patient Lives Alone: No - Nursing Vital Signs Nursing Vital Signs: Initial Vital Signs Temperature 98.9 F 10/25/23 14:07 Pulse Rate 88 10/25/23 14:07 Respiratory Rate 27 H 10/25/23 14:07 Blood Pressure 125/74 10/25/23 14:07 O2 Sat by Pulse Oximetry 94 L 10/25/23 14:07 Pain Scale Pain Intensity 0 - Physical Exam General Appearance: alert Eye Exam: PERRL/EOMI Ears, Nose, Throat Exam: TMs normal, pharyngeal erythema (mild) Neck Exam: normal inspection Respiratory Exam: lungs clear Cardiovascular Exam: normal heart sounds Gastrointestinal/Abdomen Exam: normal bowel sounds Back Exam: normal inspection Extremity Exam: normal range of motion Neurologic Exam: alert, cooperative, sensation nml, No motor deficits Skin Exam: warm, dry SpO2: 94 - Course EKG Interpreted by Me: RATE (98), Sinus Rhythm, NORMAL AXIS, Other (QTc = 478) - CT Exams Chest CT Interpretation: Tele-radiologist Report (No PE in the major vessels. Progression of the previously noted multiple hilar and mediastinal lymph nodes compared to previous, for cliical correlation and further assessment CT abdomen and pelvis is advised. See rest of report. ) Ordered Tests: Active Orders 24 hr Category Date Time Status EKG-ER Only STAT Care 10/25/23 14:14 Active IV Insertion STAT Care 10/25/23 14:14 Active CHEST WITH CONTRAST [CT] Stat Exams 10/25/23 14:16 Completed AMYLASE Stat Lab 10/25/23 14:29 Completed CBC W DIFF Stat Lab 10/25/23 14:29 Completed CMP Stat Lab 10/25/23 14:29 Completed ETHYL ALCOHOL Stat Lab 10/25/23 14:29 Completed LIPASE Stat Lab 10/25/23 14:29 Completed MAGNESIUM Stat Lab 10/25/23 14:29 Completed MONO SCREEN Stat Lab 10/25/23 14:29 Completed TROPONIN Q4H Lab 10/25/23 14:29 Completed TROPONIN Q4H Lab 10/25/23 18:15 Ordered TROPONIN Q4H Lab 10/25/23 22:15 Ordered UA W/RFX UR CULTURE Stat Lab 10/25/23 15:47 Completed Urine Triage Profile Stat Lab 10/25/23 15:47 Completed Medication Summary Discontinued Medications Generic Name Dose Route Start Last Admin Trade Name Freq PRN Reason Stop Dose Admin Aspirin 324 mg 10/25/23 17:22 10/25/23 17:22 Aspirin 81 Mg Tab.Chew PO 10/25/23 17:23 324 mg STAT ONE Administration Aspirin Confirm 10/25/23 17:25 Aspirin 81 Mg Tab.Chew Administered 10/25/23 17:26 Dose 324 mg .ROUTE .STK-MED ONE Sodium Chloride 1,000 mls @ 999 mls/hr 10/25/23 14:14 10/25/23 15:33 Sodium Chloride 0.9% 1000 Ml IV 10/25/23 15:14 Infused .Q1H1M STA Infusion Sodium Chloride Confirm 10/25/23 14:29 Sodium Chloride 0.9% 1000 Ml Administered 10/25/23 14:30 Dose 1,000 mls @ .ROUTE .[facility]-MED ONE Lab/Rad Data: Laboratory Result Diagrams 10/25/23 14:29 10/25/23 14:29 Laboratory Results 10/25/23 10/25/23 10/25/23 Range/Units 15:47 15:47 14:29 WBC (4.23-9.07) x10^3/uL RBC (4.63-6.08) x10^6/uL Hgb (13.7-17.5) g/dL Hct (40.1-51.0) % MCV (79.0-92.2) fL MCH (25.7-32.2) pg MCHC (32.3-36.5) g/dL RDW (11.6-14.4) % Plt Count (163-337) x10^3/uL MPV (9.4-12.4) fL Gran % (34.0-67.9) % Immature Gran % (Auto) (0.001-0.429) % Nucleat RBC Rel Count (0.00-0.2) % Eos # (Auto) (0.04-0.54) x10^3/uL Immature Gran # (Auto) (0.001-0.031) x10^3u/L Absolute Lymphs (auto) (1.32-3.57) x10^3/uL Absolute Monos (auto) (0.30-0.82) x10^3/uL Absolute Nucleated RBC (0.00-0.012) x10^3u/L Lymphocytes % (21.8-53.1) % Monocytes % (5.3-12.2) % Eosinophils % (0.8-7.0) % Basophils % (0.2-1.2) % Absolute Granulocytes (1.78-5.38) x10^3/uL Basophils # (0.01-0.08) x10^3/uL Sodium (135-145) mmol/L Potassium (3.5-5.1) mmol/L Chloride (98-107) mmol/L Carbon Dioxide (22-30) mmol/L Anion Gap (5-15) MEQ/L BUN (9-20) mg/dL Creatinine (0.66-1.25) mg/dL Estimated GFR ML/MIN Glucose (74-106) mg/dL Calcium (8.4-10.2) mg/dL Magnesium (1.6-2.3) mg/dL Total Bilirubin (0.2-1.3) mg/dL AST (17-59) U/L ALT (0-50) U/L Alkaline Phosphatase (38-126) U/L Troponin I (0.000-0.033) ng/mL Serum Total Protein (6.3-8.2) g/dL Albumin (3.5-5.0) g/dL Amylase (30-110) U/L Lipase (23-300) U/L Urine Color Yellow (Yellow) Urine Appearance Clear (Clear) Urine pH 7.0 (4.6-8.0) Ur Specific [place] 1.010 (1.005-1.030) Urine Protein Negative (Negative) Urine Glucose (UA) Negative (Negative) mg/dL Urine Ketones Negative (Negative) Urine Blood Negative (Negative) Urine Nitrite Negative (Negative) Urine Bilirubin Negative (Negative) Urine Urobilinogen 1.0 A (0.2) mg/dL Ur Leukocyte Esterase Negative (Negative) U Hyaline Cast (Auto) NONE SEEN (0-2) /LPF Urine Microscopic RBC 0-2 (0-5) /HPF Urine Microscopic WBC 0-2 (0-5) /HPF Ur Epithelial Cells None Seen (None Seen) /HPF Urine Bacteria None Seen (None Seen) /HPF Urine Culture Reflexed NO (NO) Urine Opiates Level NEGATIVE (NEGATIVE) Ur Methadone NEGATIVE (NEGATIVE) Urine Barbiturates NEGATIVE (NEGATIVE) Ur Phencyclidine (PCP) NEGATIVE (NEGATIVE) Urine Amphetamine NEGATIVE (NEGATIVE) U Benzodiazepine Level NEGATIVE (NEGATIVE) Urine Cocaine NEGATIVE (NEGATIVE) Urine Marijuana (THC) NEGATIVE (NEGATIVE) Ethyl Alcohol (0-10) mg/dL Monoscreen NEGATIVE (NEGATIVE) Group A Strep Antibody (NEGATIVE) Slides for Path Review 10/25/23 10/25/23 10/25/23 Range/Units 14:29 14:29 14:29 WBC (4.23-9.07) x10^3/uL RBC (4.63-6.08) x10^6/uL Hgb (13.7-17.5) g/dL Hct (40.1-51.0) % MCV (79.0-92.2) fL MCH (25.7-32.2) pg MCHC (32.3-36.5) g/dL RDW (11.6-14.4) % Plt Count (163-337) x10^3/uL MPV (9.4-12.4) fL Gran % (34.0-67.9) % Immature Gran % (Auto) (0.001-0.429) % Nucleat RBC Rel Count (0.00-0.2) % Eos # (Auto) (0.04-0.54) x10^3/uL Immature Gran # (Auto) (0.001-0.031) x10^3u/L Absolute Lymphs (auto) (1.32-3.57) x10^3/uL Absolute Monos (auto) (0.30-0.82) x10^3/uL Absolute Nucleated RBC (0.00-0.012) x10^3u/L Lymphocytes % (21.8-53.1) % Monocytes % (5.3-12.2) % Eosinophils % (0.8-7.0) % Basophils % (0.2-1.2) % Absolute Granulocytes (1.78-5.38) x10^3/uL Basophils # (0.01-0.08) x10^3/uL Sodium 140 (135-145) mmol/L Potassium 3.5 (3.5-5.1) mmol/L Chloride 111 H (98-107) mmol/L Carbon Dioxide 20 L (22-30) mmol/L Anion Gap 13.1 (5-15) MEQ/L BUN 6 L (9-20) mg/dL Creatinine 0.68 (0.66-1.25) mg/dL Estimated GFR 111.2 ML/MIN Glucose 163 H (74-106) mg/dL Calcium 7.9 L (8.4-10.2) mg/dL Magnesium 1.8 (1.6-2.3) mg/dL Total Bilirubin 0.80 (0.2-1.3) mg/dL AST 91 H (17-59) U/L ALT 51 H (0-50) U/L Alkaline Phosphatase 153 H (38-126) U/L Troponin I < 0.012 (0.000-0.033) ng/mL Serum Total Protein 7.3 (6.3-8.2) g/dL Albumin 3.1 L (3.5-5.0) g/dL Amylase 64 (30-110) U/L Lipase 220 (23-300) U/L Urine Color (Yellow) Urine Appearance (Clear) Urine pH (4.6-8.0) Ur Specific [place] (1.005-1.030) Urine Protein (Negative) Urine Glucose (UA) (Negative) mg/dL Urine Ketones (Negative) Urine Blood (Negative) Urine Nitrite (Negative) Urine Bilirubin (Negative) Urine Urobilinogen (0.2) mg/dL Ur Leukocyte Esterase (Negative) U Hyaline Cast (Auto) (0-2) /LPF Urine Microscopic RBC (0-5) /HPF Urine Microscopic WBC (0-5) /HPF Ur Epithelial Cells (None Seen) /HPF Urine Bacteria (None Seen) /HPF Urine Culture Reflexed (NO) Urine Opiates Level (NEGATIVE) Ur Methadone (NEGATIVE) Urine Barbiturates (NEGATIVE) Ur Phencyclidine (PCP) (NEGATIVE) Urine Amphetamine (NEGATIVE) U Benzodiazepine Level (NEGATIVE) Urine Cocaine (NEGATIVE) Urine Marijuana (THC) (NEGATIVE) Ethyl Alcohol (0-10) mg/dL Monoscreen (NEGATIVE) Group A Strep Antibody NOT DETECTED (NEGATIVE) Slides for Path Review 10/25/23 10/25/23 Range/Units 14:29 14:29 WBC 6.2 (4.23-9.07) x10^3/uL RBC 4.05 L (4.63-6.08) x10^6/uL Hgb 14.3 (13.7-17.5) g/dL Hct 40.6 (40.1-51.0) % MCV 100.2 H (79.0-92.2) fL MCH 35.3 H (25.7-32.2) pg MCHC 35.2 (32.3-36.5) g/dL RDW 13.6 (11.6-14.4) % Plt Count 74 L (163-337) x10^3/uL MPV 13.7 H (9.4-12.4) fL Gran % 36.0 (34.0-67.9) % Immature Gran % (Auto) 0.2 (0.001-0.429) % Nucleat RBC Rel Count 0.0 (0.00-0.2) % Eos # (Auto) 0.20 (0.04-0.54) x10^3/uL Immature Gran # (Auto) 0.01 (0.001-0.031) x10^3u/L Absolute Lymphs (auto) 2.87 (1.32-3.57) x10^3/uL Absolute Monos (auto) 0.86 H (0.30-0.82) x10^3/uL Absolute Nucleated RBC 0.00 (0.00-0.012) x10^3u/L Lymphocytes % 46.2 (21.8-53.1) % Monocytes % 13.8 H (5.3-12.2) % Eosinophils % 3.2 (0.8-7.0) % Basophils % 0.6 (0.2-1.2) % Absolute Granulocytes 2.23 (1.78-5.38) x10^3/uL Basophils # 0.04 (0.01-0.08) x10^3/uL Sodium (135-145) mmol/L Potassium (3.5-5.1) mmol/L Chloride (98-107) mmol/L Carbon Dioxide (22-30) mmol/L Anion Gap (5-15) MEQ/L BUN (9-20) mg/dL Creatinine (0.66-1.25) mg/dL Estimated GFR ML/MIN Glucose (74-106) mg/dL Calcium (8.4-10.2) mg/dL Magnesium (1.6-2.3) mg/dL Total Bilirubin (0.2-1.3) mg/dL AST (17-59) U/L ALT (0-50) U/L Alkaline Phosphatase (38-126) U/L Troponin I (0.000-0.033) ng/mL Serum Total Protein (6.3-8.2) g/dL Albumin (3.5-5.0) g/dL Amylase (30-110) U/L Lipase (23-300) U/L Urine Color (Yellow) Urine Appearance (Clear) Urine pH (4.6-8.0) Ur Specific [place] (1.005-1.030) Urine Protein (Negative) Urine Glucose (UA) (Negative) mg/dL Urine Ketones (Negative) Urine Blood (Negative) Urine Nitrite (Negative) Urine Bilirubin (Negative) Urine Urobilinogen (0.2) mg/dL Ur Leukocyte Esterase (Negative) U Hyaline Cast (Auto) (0-2) /LPF Urine Microscopic RBC (0-5) /HPF Urine Microscopic WBC (0-5) /HPF Ur Epithelial Cells (None Seen) /HPF Urine Bacteria (None Seen) /HPF Urine Culture Reflexed (NO) Urine Opiates Level (NEGATIVE) Ur Methadone (NEGATIVE) Urine Barbiturates (NEGATIVE) Ur Phencyclidine (PCP) (NEGATIVE) Urine Amphetamine (NEGATIVE) U Benzodiazepine Level (NEGATIVE) Urine Cocaine (NEGATIVE) Urine Marijuana (THC) (NEGATIVE) Ethyl Alcohol 83 H (0-10) mg/dL Monoscreen (NEGATIVE) Group A Strep Antibody (NEGATIVE) Slides for Path Review YES - Progress Progress: improved Progress Note: 10/25/23 17:[address] abdomen/pelvis. Counseled pt/family regarding: lab results, diagnosis, need for follow-up, rad results Medical Desision Making - Diagnostic Testing Diagnostic test were ordered, analyzed, and reviewed by me: Yes Radiological Interpretation: Teleradiologist Report - Departure Departure Disposition: Home Clinical Impression: Chest pain, Alcohol intoxication Condition: Stable Critical Care Time: No Referrals: ADELE KITCHEN MD [Primary Care Provider] - Follow up/PCP as directed Instructions: Chest Pain, Adult ED Additional Instructions: Follow up with private doctor tomorrow. Avoid alcoholic beverages. Forms: Work/School Release Form
[2023-10-25] MEDS ORDERED: Sodium Chloride 0.9% 1000 ML 1,000 ML ONE (14:29)
[2023-10-25] MEDS: Sodium Chloride 0.9% 1000 ML 1,000 ML IV STA (14:30)
[2023-10-25 14:37] LABS: Absolute Neutrophil Ct (ANC) 2.23 x10^3/uL (1.78-5.38); BASOPHIL % 0.6 % (0.2-1.2); Basophil (Absolute #) 0.04 x10^3/uL (0.01-0.08); Eosinophil % 3.2 % (0.8-7.0); Hematocrit 40.6 % (40.1-51.0); Hemoglobin 14.3 g/dL (13.7-17.5); IMMATURE GRAN # 0.01 x10^3u/L (0.001-0.031); IMMATURE GRAN % 0.2 % (0.001-0.429); Lymphocyte (Absolute #) 2.87 x10^3/uL (1.32-3.57); Lymphocytes % 46.2 % (21.8-53.1); Mean Cell Volume 100.2 fL (79.0-92.2); Mean Corpuscular Hemoglobin 35.3 pg (25.7-32.2); Mean Corpuscular Hgb Concent. 35.2 g/dL (32.3-36.5); Mean Platelet Volume 13.7 fL (9.4-12.4); Monocyte (Absolute #) 0.86 x10^3/uL (0.30-0.82); Monocytes % 13.8 % (5.3-12.2); Platelet Count 74 x10^3/uL (163-337); Red Blood Count 4.05 x10^6/uL (4.63-6.08); Red Cell Distribution Width 13.6 % (11.6-14.4); White Blood Count 6.2 x10^3/uL (4.23-9.07)
[2023-10-25 14:54] LABS: ALBUMIN 3.1 g/dL (3.5-5.0); ANION GAP 13.1 MEQ/L (5-15); BILIRUBIN,TOTAL 0.8 mg/dL (0.2-1.3); Calcium 7.9 mg/dL (8.4-10.2); Creatinine 1 0.68 mg/dL (0.66-1.25); EST GLOMERULAR FILTRATION RATE 111.2 ML/MIN; Potassium 3.5 mmol/L (3.5-5.1); Total Protein 7.3 g/dL (6.3-8.2)
[2023-10-25 14:58] LABS: Slide Review 1 YES
[2023-10-25 15:12] LABS: MAGNESIUM 1.8 mg/dL (1.6-2.3); TROPONIN < 0.012 ng/mL (0.000-0.033)
--- NOTE | 2023-10-25 16:41 | XRAY ---
CLINICAL HISTORY: chest pain COMPARISON: 07/29/2021. TECHNIQUE: Contiguous 3.[address] images of the chest were acquired with the administration of intravenous contrast. Coronal and sagittal reconstructions were obtained. 80 cc Isovue 370 was administered for post-contrast images. One of the following dose reduction techniques was utilized for this exam: Automated exposure control, adjustment of the mA and/or kV according to patient size, and use of iterative reconstruction. FINDINGS: No pulmonary embolism in the pulmonary trunk , main pulmonary arteries, and in the segmental branches. Multiple lymph nodes are noted within the mediastinum along with the perivascular region, pretracheal and subcarinal, in the axilla and both hilar regions, the large ones seen in the subcarinal 15 mm and in the pretracheal 13mm in short axis. These lymph nodes are increased in size compared to the previous study. The scanned pulmonary parenchyma shows no definite consolidative lesions, and a few small cysts are noted in the upper lobes. Right lower lobe thin atelectatic band. No free or encysted pleural effusion. Heart size is normal, and there is no pericardial effusion. There is no definite mass lesion in the chest wall. Fusion of the upper thoracic spines. The scanned upper abdomen is unremarkable. IMPRESSION: 1. No pulmonary embolism in the major vessels. 2. Progression of the previously noted multiple hilar and mediastinal lymph nodes compared to previous, for clinical correlation and further assessment. CT abdomen and pelvis is advised. [facility] ER was called at [phone] at 3:36 PM [employer], 10/25/2023 and Andrea BLACK was informed about the medical findings. Electronically Signed by: Cat Alexandra MD. (10/25/2023 16:37:33 EDT)
[2023-10-25 16:53] LABS: Appearance Clear (Clear); Bacteria None Seen /HPF (None Seen); Bilirubin Negative (Negative); Blood Negative (Negative); Epithelial Cells None Seen /HPF (None Seen); Glucose, Urine Negative (Negative); Hyaline Casts NONE SEEN /LPF (0-2); Ketones Negative (Negative); Leukocyte Esterase Negative (Negative); Nitrite Negative (Negative); Protein,Urine Dip Negative (Negative); WBC 0-2 /HPF (0-5)
[2023-10-25 16:54] LABS: ADD URINE CULTURE? NO (NO); Amphetamine,Urine NEGATIVE (NEGATIVE); Barbiturate,Urine NEGATIVE (NEGATIVE); Benzodiazepine,Urine NEGATIVE (NEGATIVE); Cocaine,Urine NEGATIVE (NEGATIVE); Methadone,Urine NEGATIVE (NEGATIVE); Opiate,Urine NEGATIVE (NEGATIVE); PCP,Urine NEGATIVE (NEGATIVE); RBC 0-2 /HPF (0-5); THC,Urine NEGATIVE (NEGATIVE)
[2023-10-25] MEDS: BABY ASPIRIN 81 MG CHEW PO ONE (17:22)
[2023-10-25] MEDS ORDERED: BABY ASPIRIN 81 MG CHEW ONE (17:25)
[2023-10-25 17:30] VITALS: BP 123/79; PULSE 84; RESP 18
[2023-10-25 17:33] VITALS: O2SAT 94
== END 2023-10-25 17:33 | disposition home or self-care (01) ==
LOC: ED 14:03
DX: F10.129 Alcohol abuse with intoxication, unspecified (principal); Y90.4 Blood alcohol level of 80-99 mg/100 ml; R07.9 Chest pain, unspecified; R53.1 Weakness; I10 Essential (primary) hypertension; Z79.899 Other long term (current) drug therapy; Z72.0 Tobacco use
CPT/HCPCS: 36000; 36415; 71260; 80053; 80307; 81001; 82077; 82150; 83690; 83735; 84484; 85025; 86308; 87651; 93005; 99284; A9270-GY

== ENCOUNTER 2024-02-29 10:06 | Emergency (ER) | payer OTHER ==
[2024-02-29] MEDS ORDERED: SUBLIMAZE 100 MCG/2 ML ONE ×2 (10:16→11:29)
[2024-02-29] MEDS: SUBLIMAZE 100 MCG/2 ML IV ONE ×2 (10:17→11:32)
[2024-02-29 10:22] VITALS: TEMP 98
--- NOTE | 2024-02-29 10:43 | ERPHSYRPT ---
- History of Present Illness Time Seen by Provider: 02/29/24 10:20 Historian: patient Exam Limitations: no limitations Patient Subjective Stated Complaint: C/O Chest pain that started a few hours ago while at work. 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 Has vomitted X 4 today, states vomiting started prior to chest pain before going into work today. Triage Nursing Assessment: Patient arrived by ambulance. He is alert and oriented; showing s/s of pain (restless in bed, grimacing, clutching chest). No SOB. No cough. SKin tone normal. REID WNL. Timing/Duration: today Activities at Onset: rest Quality: aching Chest Pain Radiation: back Severity of Pain-Max: severe Severity of Pain-Current: moderate Modifying Factors: Improves With: nothing Associated Symptoms: denies symptoms Aspirin Treatment Today: unknown Allergies/Adverse Reactions: morphine Allergy (Severe, Verified 02/29/24 10:14) BREATHING Home Medications: Amlodipine Besylate/Benazepril [Amlodipine-Benazepril 2.5-10] 1 tab PO DAILY 07/29/21 [History] Hx Tetanus, Diphtheria Vaccination/Date Given: Yes Hx Influenza Vaccination/Date Given: Yes Hx Pneumococcal Vaccination/Date Given: No Immunizations Up to Date: Yes Travel Risk - International Travel Have you traveled outside of the country in past 3 weeks: No - Emerging Infectious Disease Are you exhibiting symptoms associated with any current EIDs: Yes Symptoms: Headaches/Body Aches/, Vomitting - Review of Systems Eyes: No Symptoms Ears, Nose, & Throat: No Symptoms Respiratory: No Symptoms Cardiac: Chest Pain Abdominal/Gastrointestinal: No Symptoms Genitourinary Symptoms: No Symptoms Musculoskeletal: No Symptoms Skin: No Symptoms Neurological: No Symptoms Psychological: No Symptoms - Past Medical History Pertinent Past Medical History: Yes Neurological History: Other ENT History: No Pertinent History Cardiac History: Hypertension Respiratory History: No Pertinent History Endocrine Medical History: No Pertinent History Musculoskeletal History: Degenerative Disk Disease GI Medical History: No Pertinent History History: No Pertinent History Psycho-Social History: No Pertinent History Male Reproductive Disorders: No Pertinent History Other Medical History: Patient states he doesn't believe that he has had an MN in the past. Only HTN. - Past Surgical History Past Surgical History: Yes Neuro Surgical History: No Pertinent History Cardiac: No Pertinent History Respiratory: No Pertinent History Gastrointestinal: No Pertinent History Genitourinary: No Pertinent History Musculoskeletal: Other Male Surgical History: No Pertinent History Other Surgical History: SX HX: LAMINECTOMY, lower back surgery " shaved part of disc off" - Social History Smoking Status: Current every day smoker How long have you smoked: 40 years Exposure to second hand smoke: Yes Drug Use: marijuana Patient Lives Alone: No - Social Determinants of Health Will the patient participate in the screening: Declined to provide - Nursing Vital Signs Nursing Vital Signs: Initial Vital Signs Temperature 98 F 02/29/24 10:12 Pulse Rate 75 02/29/24 10:12 Respiratory Rate 19 02/29/24 10:12 Blood Pressure 107/67 02/29/24 10:12 O2 Sat by Pulse Oximetry 93 L 02/29/24 10:12 Pain Scale Pain Intensity 0 - Physical Exam General Appearance: mild distress Eye Exam: PERRL/EOMI Ears, Nose, Throat Exam: normal ENT inspection Respiratory Exam: normal breath sounds, chest tenderness (patient has mild left sided chest wall tenderness) Cardiovascular Exam: regular rate/rhythm SpO2: 93 Ordered Tests: Active Orders 24 hr Category Date Time Status CTA CHEST W AND/OR WO [CT] Stat Exams 02/29/24 10:26 Completed GALLBLADDER [US] Stat Exams 02/29/24 12:11 Completed CBC W DIFF Stat Lab 02/29/24 11:02 Completed CMP Stat Lab 02/29/24 11:02 Completed ETHYL ALCOHOL Stat Lab 02/29/24 11:25 Completed LIPASE Stat Lab 02/29/24 11:25 Completed MAGNESIUM Stat Lab 02/29/24 11:02 Completed TROPONIN Q4H Lab 02/29/24 11:02 Completed TROPONIN Q4H Lab 02/29/24 13:04 Completed TROPONIN Q4H Lab 02/29/24 18:30 Ordered TROPONIN Q4H Lab 02/29/24 22:30 Ordered Urine Triage Profile Stat Lab 02/29/24 13:15 Completed Medication Summary Discontinued Medications Generic Name Dose Route Start Last Admin Trade Name Freq PRN Reason Stop Dose Admin Droperidol 1.25 mg 02/29/24 13:18 02/29/24 13:26 Droperidol 5 Mg/2 Ml Vial IV 02/29/24 13:19 1.25 mg STAT ONE Administration Droperidol Confirm 02/29/24 13:25 Droperidol 5 Mg/2 Ml Vial Administered 02/29/24 13:26 Dose 5 mg .ROUTE .STK-MED ONE Fentanyl Citrate Confirm 02/29/24 10:16 Fentanyl Citrate 100 Mcg/2 Ml* Vial Administered 02/29/24 10:17 Dose 100 mcg .ROUTE .STK-MED ONE Fentanyl Citrate 100 mcg 02/29/24 10:30 02/29/24 10:17 Fentanyl Citrate 100 Mcg/2 Ml* Vial IV 02/29/24 10:31 100 mcg STAT ONE Administration Fentanyl Citrate 100 mcg 02/29/24 11:25 02/29/24 11:32 Fentanyl Citrate 100 Mcg/2 Ml* Vial IV 02/29/24 11:26 100 mcg STAT ONE Administration Fentanyl Citrate Confirm 02/29/24 11:29 Fentanyl Citrate 100 Mcg/2 Ml* Vial Administered 02/29/24 11:30 Dose 100 mcg .ROUTE .STK-MED ONE Ondansetron HCl 4 mg 02/29/24 11:28 02/29/24 11:32 Ondansetron Hcl 4 Mg/2 Ml Vial IV 02/29/24 11:29 4 mg STAT ONE Administration Ondansetron HCl Confirm 02/29/24 11:28 Ondansetron Hcl 4 Mg/2 Ml Vial Administered 02/29/24 11:29 Dose 4 mg .ROUTE .STK-MED ONE Lab/Rad Data: Laboratory Result Diagrams 02/29/24 11:02 02/29/24 11:02 Laboratory Results 02/29/24 02/29/24 02/29/24 Range/Units 13:15 13:04 11:25 WBC (4.23-9.07) x10^3/uL RBC (4.63-6.08) x10^6/uL Hgb (13.7-17.5) g/dL Hct (40.1-51.0) % MCV (79.0-92.2) fL MCH (25.7-32.2) pg MCHC (32.3-36.5) g/dL RDW (11.6-14.4) % Plt Count (163-337) x10^3/uL MPV (9.4-12.4) fL Gran % (34.0-67.9) % Immature Gran % (Auto) (0.001-0.429) % Nucleat RBC Rel Count (0.00-0.2) % Eos # (Auto) (0.04-0.54) x10^3/uL Immature Gran # (Auto) (0.001-0.031) x10^3u/L Absolute Lymphs (auto) (1.32-3.57) x10^3/uL Absolute Monos (auto) (0.30-0.82) x10^3/uL Absolute Nucleated RBC (0.00-0.012) x10^3u/L Lymphocytes % (21.8-53.1) % Monocytes % (5.3-12.2) % Eosinophils % (0.8-7.0) % Basophils % (0.2-1.2) % Absolute Granulocytes (1.78-5.38) x10^3/uL Basophils # (0.01-0.08) x10^3/uL Sodium (135-145) mmol/L Potassium (3.5-5.1) mmol/L Chloride (98-107) mmol/L Carbon Dioxide (22-30) mmol/L Anion Gap (5-15) MEQ/L BUN (9-20) mg/dL Creatinine (0.66-1.25) mg/dL Estimated GFR ML/MIN Glucose (74-106) mg/dL Calcium (8.4-10.2) mg/dL Magnesium (1.6-2.3) mg/dL Total Bilirubin (0.2-1.3) mg/dL AST (17-59) U/L ALT (0-50) U/L Alkaline Phosphatase (38-126) U/L Troponin I < 0.012 (0.000-0.033) ng/mL Serum Total Protein (6.3-8.2) g/dL Albumin (3.5-5.0) g/dL Lipase 296 (23-300) U/L Urine Opiates Level NEGATIVE (NEGATIVE) Ur Methadone NEGATIVE (NEGATIVE) Urine Barbiturates NEGATIVE (NEGATIVE) Ur Phencyclidine (PCP) NEGATIVE (NEGATIVE) Urine Amphetamine NEGATIVE (NEGATIVE) U Benzodiazepine Level NEGATIVE (NEGATIVE) Urine Cocaine NEGATIVE (NEGATIVE) Urine Marijuana (THC) NEGATIVE (NEGATIVE) Ethyl Alcohol < 10 (0-10) mg/dL Slides for Path Review 02/29/24 02/29/24 02/29/24 Range/Units 11:02 11:02 11:02 WBC 7.3 (4.23-9.07) x10^3/uL RBC 3.66 L (4.63-6.08) x10^6/uL Hgb 13.3 L (13.7-17.5) g/dL Hct 38.5 L (40.1-51.0) % MCV 105.2 H (79.0-92.2) fL MCH 36.3 H (25.7-32.2) pg MCHC 34.5 (32.3-36.5) g/dL RDW 14.1 (11.6-14.4) % Plt Count 67 L (163-337) x10^3/uL MPV 13.2 H (9.4-12.4) fL Gran % 66.3 (34.0-67.9) % Immature Gran % (Auto) 0.3 (0.001-0.429) % Nucleat RBC Rel Count 0.0 (0.00-0.2) % Eos # (Auto) 0.11 (0.04-0.54) x10^3/uL Immature Gran # (Auto) 0.02 (0.001-0.031) x10^3u/L Absolute Lymphs (auto) 1.42 (1.32-3.57) x10^3/uL Absolute Monos (auto) 0.88 H (0.30-0.82) x10^3/uL Absolute Nucleated RBC 0.00 (0.00-0.012) x10^3u/L Lymphocytes % 19.5 L (21.8-53.1) % Monocytes % 12.1 (5.3-12.2) % Eosinophils % 1.5 (0.8-7.0) % Basophils % 0.3 (0.2-1.2) % Absolute Granulocytes 4.83 (1.78-5.38) x10^3/uL Basophils # 0.02 (0.01-0.08) x10^3/uL Sodium 144 (135-145) mmol/L Potassium 4.0 (3.5-5.1) mmol/L Chloride 113 H (98-107) mmol/L Carbon Dioxide 23 (22-30) mmol/L Anion Gap 12.1 (5-15) MEQ/L BUN 8 L (9-20) mg/dL Creatinine 0.72 (0.66-1.25) mg/dL Estimated GFR 108.6 ML/MIN Glucose 163 H (74-106) mg/dL Calcium 8.0 L (8.4-10.2) mg/dL Magnesium 1.8 (1.6-2.3) mg/dL Total Bilirubin 1.40 H (0.2-1.3) mg/dL AST 80 H (17-59) U/L ALT 44 (0-50) U/L Alkaline Phosphatase 183 H (38-126) U/L Troponin I < 0.012 (0.000-0.033) ng/mL Serum Total Protein 7.0 (6.3-8.2) g/dL Albumin 2.7 L (3.5-5.0) g/dL Lipase (23-300) U/L Urine Opiates Level (NEGATIVE) Ur Methadone (NEGATIVE) Urine Barbiturates (NEGATIVE) Ur Phencyclidine (PCP) (NEGATIVE) Urine Amphetamine (NEGATIVE) U Benzodiazepine Level (NEGATIVE) Urine Cocaine (NEGATIVE) Urine Marijuana (THC) (NEGATIVE) Ethyl Alcohol (0-10) mg/dL Slides for Path Review YES - Progress Progress Note: Patient was seen and evaluated for chest pain that is radiating to his back, He was given fentanyl with some relief. 02/29/24 14:42f CTA of the chest reveals no acute finding. Gallbladder ultrasound reveals gallstones. and sludge cardiac enzymes are within normal limits. Patient was reevaluated he feels better and wants to go home. He does not want to be admitted for cardiac evaluation at this time. He was informed of the need to follow-up with his primary care provider or general surgeon and ca rdiologist he is to return to the ER if he were to get worse Medical Desision Making - Discussion of managment Reviewed:: Need for additional workup Agreed on:: need for follow-up - Departure Departure Disposition: Home Clinical Impression: Chest pain, Gallstones Condition: Good Critical Care Time: No Referrals: ADELE KITCHEN MD [Primary Care Provider] - Follow up/PCP as directed Additional Instructions: please follow up with your general surgeon for evaluation of gallstones
[2024-02-29 11:10] LABS: Absolute Neutrophil Ct (ANC) 4.83 x10^3/uL (1.78-5.38); BASOPHIL % 0.3 % (0.2-1.2); Basophil (Absolute #) 0.02 x10^3/uL (0.01-0.08); Eosinophil % 1.5 % (0.8-7.0); Eosinophil (Absolute #) 0.11 x10^3/uL (0.04-0.54); Hematocrit 38.5 % (40.1-51.0); Hemoglobin 13.3 g/dL (13.7-17.5); IMMATURE GRAN # 0.02 x10^3u/L (0.001-0.031); IMMATURE GRAN % 0.3 % (0.001-0.429); Lymphocyte (Absolute #) 1.42 x10^3/uL (1.32-3.57); Lymphocytes % 19.5 % (21.8-53.1); Mean Cell Volume 105.2 fL (79.0-92.2); Mean Corpuscular Hemoglobin 36.3 pg (25.7-32.2); Mean Corpuscular Hgb Concent. 34.5 g/dL (32.3-36.5); Mean Platelet Volume 13.2 fL (9.4-12.4); Monocyte (Absolute #) 0.88 x10^3/uL (0.30-0.82); Monocytes % 12.1 % (5.3-12.2); Neutrophil % 66.3 % (34.0-67.9); Platelet Count 67 x10^3/uL (163-337); Red Blood Count 3.66 x10^6/uL (4.63-6.08); Red Cell Distribution Width 14.1 % (11.6-14.4); White Blood Count 7.3 x10^3/uL (4.23-9.07)
[2024-02-29 11:23] LABS: ALBUMIN 2.7 g/dL (3.5-5.0); ANION GAP 12.1 MEQ/L (5-15); BILIRUBIN,TOTAL 1.4 mg/dL (0.2-1.3); Creatinine 1 0.72 mg/dL (0.66-1.25); EST GLOMERULAR FILTRATION RATE 108.6 ML/MIN; MAGNESIUM 1.8 mg/dL (1.6-2.3)
[2024-02-29 11:24] LABS: Slide Review 1 YES
[2024-02-29] MEDS ORDERED: Zofran 4 MG/2 ML VIAL ONE (11:28)
[2024-02-29] MEDS: Zofran 4 MG/2 ML VIAL IV ONE (11:32)
[2024-02-29 11:37] LABS: ETHYL ALCOHOL < 10 mg/dL (0-10); LIPASE 296 U/L (23-300)
--- NOTE | 2024-02-29 11:54 | XRAY ---
Indication: Chest pain. Pulmonary embolus. Aneurysm. Conventional contrast enhanced CTA chest performed using 100 cc Isovue 370 contrast. 2-D sagittal and coronal reformatted images obtained. Comparison: October 25, 2023. Thoracic aorta and arch remains normal in CTA appearance. Adequate opacification of the pulmonary arteries again without pulmonary embolus. Heart is not enlarged. No pathologic mediastinal/hilar lymphadenopathy. Lungs demonstrate mild bilateral dependent atelectasis. No suspicious pulmonary mass/nodule, infiltrate, or effusion. Bony thorax intact with new epidural lead terminating T8-T9 level. Limited upper abdomen again demonstrate mild cirrhotic appearing liver and tiny gallstones/gravel. New tiny perihepatic ascites. Impression: 1. Continued normal CTA chest with contrast compared to October 25, 2023. 2. Again mild cirrhotic liver with new tiny perihepatic fluid. 3. Chronic findings including tiny gallstones/gravel and new epidural lead.
--- NOTE | 2024-02-29 13:20 | XRAY ---
Indication: Abdominal pain. Normal CTA chest. Two-dimensional gallbladder sonogram performed. Comparison: None Visualized gallbladder normally distended minimal sludge and 5 mm gallstone in the dependent portion. No abnormal gallbladder wall thickening or pericholecystic fluid. Common bile duct measures 4.6 mm. No intrahepatic biliary distention. Visualized liver homogeneous in echogenicity. Visualized right kidney measures 12.3 x 6.1 x 3.4 cm with 1.5 cm inferior nonobstructing calculus. Impression: 1. Gallbladder sludge and 5 mm gallstone. Negative for acute cholecystitis or biliary distention. 2. Incidental 1.5 cm nonobstructing right renal calculus.
[2024-02-29 13:57] LABS: Amphetamine,Urine NEGATIVE (NEGATIVE); Barbiturate,Urine NEGATIVE (NEGATIVE); Benzodiazepine,Urine NEGATIVE (NEGATIVE); Cocaine,Urine NEGATIVE (NEGATIVE); Methadone,Urine NEGATIVE (NEGATIVE); Opiate,Urine NEGATIVE (NEGATIVE); PCP,Urine NEGATIVE (NEGATIVE); THC,Urine NEGATIVE (NEGATIVE)
[2024-02-29 14:47] VITALS: O2SAT 93
[2024-02-29 15:03] VITALS: BP 121/78; PULSE 105; RESP 22
== END 2024-02-29 15:11 | disposition home or self-care (01) ==
LOC: ED 10:06
DX: R07.9 Chest pain, unspecified (principal); R11.10 Vomiting, unspecified; K80.20 Calculus of gallbladder without cholecystitis without obstruction
CPT/HCPCS: 36415; 71275; 76705; 80053; 80307; 82077; 83690; 83735; 84484; 85025; 93005; 96374; 96375; 96376; 99284; 99285; J2405; J3010

== ENCOUNTER 2024-03-14 10:01 | Day surgery (SDC) | payer OTHER ==
[~2024-03-14 10:01] MED LIST: Lactated Ringers 1,000 ML IV ONE; Sensorcaine 0.25% 10 ML ONE
[2024-03-14] MEDS ORDERED: Lactated Ringers 1,000 ML IV ONE (10:28)
[2024-03-14] MEDS ORDERED: MEFOXIN 2 GM PREMIX** 2 GM/50 ML ML IV ONE (10:28)
[2024-03-14] MEDS: MEFOXIN 2 GM PREMIX** 2 GM/50 ML ML IV SCH (10:33)
[2024-03-14] MEDS: Lactated Ringers 1,000 ML IV SCH (10:33)
[2024-03-14 11:17] LABS: Calcium 7.9 mg/dL (8.4-10.2); Creatinine 1 0.68 mg/dL (0.66-1.25); EST GLOMERULAR FILTRATION RATE 110.5 ML/MIN; Potassium 3.8 mmol/L (3.5-5.1)
--- NOTE | 2024-03-14 11:37 | HP ---
HISTORY OF PRESENT ILLNESS: Patient had epigastric pain associated with nausea and vomiting. Two weeks ago had ER visit, ultrasound showed gallstones and sludge. PAST MEDICAL HISTORY: Arthritis, hypertension. HOME MEDICATIONS: Amlodipine. ALLERGIES: He had a sensitivity to morphine, caused difficulty in breathing. PAST SURGICAL HISTORY: He had stimulator in back and back surgery in the past. SOCIAL HISTORY: Every day smoker. Occasional alcohol use. FAMILY HISTORY: ND and kidney problems. REVIEW OF SYSTEMS: Twelve systems reviewed. No chest pain or palpitations. Other systems negative or noncontributory as above and per preadmission questionnaire. Again, ultrasound showed gallstones and sludge. PHYSICAL EXAMINATION: GENERAL: Height 5 feet 8 inches. BMI 33.45. No acute distress. HEENT: Sclerae nonicteric. Extraocular movements intact. NECK: No JVD. CHEST: Clear. Equal excursion, nonlabored breathing. CARDIOVASCULAR: Regular rate and rhythm. ABDOMEN: Soft. SKIN: Dry. EXTREMITIES: No cyanosis or edema. NEUROLOGIC: Alert and oriented. Moving extremities symmetrically. PSYCHIATRIC: Appropriate mood and affect. IMPRESSION: Acute exacerbation of chronic cholecystitis, symptomatic cholelithiasis. Recommend cholecystectomy. Risks were explained in detail including bleeding and infection; risk of trocar injury or hernia; risk of bile leak, bile duct injury or retained stone or sludge possibly requiring ERCP or open procedure; risk of anesthesia, DVT, PE, pneumonia; risk of aches and pains, bloating, constipation, and/or loose stools possibly chronic in nature; possibility of no improvement of preop symptoms possibly requiring further workup or studies or endoscopy or other studies or referrals. We will proceed with outpatient laparoscopic cholecystectomy, possible open. Otherwise, continue medications for his hypertension.
[2024-03-14] MEDS ORDERED: BRIDION 200MG/2ML IV ONE ×2 (12:08→13:33)
[2024-03-14] MEDS ORDERED: DIPRIVAN 200 MG/20 ML IV ONE (12:08)
[2024-03-14] MEDS ORDERED: SUBLIMAZE 100 MCG/2 ML ONE ×2 (12:08→13:47)
[2024-03-14] MEDS ORDERED: Zofran 4 MG/2 ML VIAL ONE (12:08)
[2024-03-14] MEDS ORDERED: Decadron 4 MG INJ ONE (12:08)
[2024-03-14] MEDS ORDERED: Xylocaine-Mpf 2% 5 Ml Vial ONE (12:08)
[2024-03-14] MEDS ORDERED: ROCURONIUM BROMIDE IV ONE ×2 (12:08→12:55)
[2024-03-14] MEDS ORDERED: TORAdol 30 mg Injection ONE (12:08)
[2024-03-14] MEDS ORDERED: Ephedrine Sulfate 50 MG/ML ONE (12:33)
[2024-03-14] MEDS ORDERED: Sodium Chloride 0.9% 1000 ML 1,000 ML ONE (13:12)
[2024-03-14 15:02] VITALS: O2SAT 97
[2024-03-14 15:07] VITALS: BP 132/78; PULSE 92; RESP 18; TEMP 97.8
--- NOTE | 2024-03-15 11:04 | OP ---
SURGERY DATE/TIME: 03/14/2024 [id number]. PREOPERATIVE DIAGNOSIS: Acute exacerbation of chronic cholecystitis and symptomatic cholelithiasis. POSTOPERATIVE DIAGNOSES: 1) Acute exacerbation of chronic cholecystitis and symptomatic cholelithiasis. 2) Cirrhosis. PROCEDURES: 1) Laparoscopic cholecystectomy. 2) Laparoscopic-assisted liver core biopsy (Luiz-cut core). SURGEON: Nahum Brothers MD ANESTHESIA: General. ESTIMATED BLOOD LOSS: Less than 25 mL. INDICATIONS: As noted above. Consent obtained. DESCRIPTION OF PROCEDURE AND FINDINGS: The patient was taken to the operating room. General anesthesia was induced. The abdomen was prepped and draped in the usual sterile fashion. After official time-out, no disagreement in planned procedure. Transverse incision made at the supraumbilical area. Fascia grasped and pulled upward. Veress needle inserted. Tested with saline. Pneumoperitoneum accomplished insufflating from an opening pressure of 0-15. A 5 mm bladeless port and camera inserted without difficulty, followed by two 5 mm right upper quadrant ports and 11 mm epigastric port. It should be noted there is no evidence of any intra-abdominal injury secondary to trocar or Veress needle placement. The patient did have a diffuse macronodular cirrhosis with some fatty infiltration as well. Gallbladder had chronic inflammation. It was dissected posterolateral to anterior fashion. It did require the use of a LigaSure device. This yielded some small veins and the vessels on the lymph node itself but the main artery was dissected out, clipped x3, and divided. This allowed access to the critical views obtained both anterior and posterior. The cystic duct/infundibular had been dissected out. This was clipped x3 and divided in the usual fashion. Gallbladder was slowly and carefully dissected free from its dense attachment to the liver bed staying directly on the gallbladder wall with a combination of hook cautery as well as using the LigaSure device. This yielded some slightly more prominent veins directly on the gallbladder wall. It should be noted that one of the graspers tore a small hole in the gallbladder spilling a small amount of bile. There were no visible stone spillage. Gallbladder was decompressed the rest of the way and continued dissecting directly on the gallbladder wall, dissecting it free from the liver bed. There was a little crack in the liver side of the gallbladder fossa just elevating the gallbladder up and it a little bit. Had some minor ooze. This was packed with some Surgicel and by the end of the procedure had adequate hemostasis. Good hemostasis. No active bleeding. Continued dissecting directly along the gallbladder wall. Releasing from attachments to the liver bed. Liver bed reinspected. The clips were noted to be in place in the cystic duct/cystic artery stumps. No signs of any active bleeding or bile leakage. Gallbladder released from final attachments, anterior edge of liver, placed in the sac and pulled free and up and out the epigastrium and then passed off. This port was replaced. Puncture closure device placed with #1 Vicryl transverse fashion at the end of the procedure. The port was replaced. Liver was elevated upward. Copious irrigation irrigating lateral to the liver and irrigating clear. It should be noted appeared to have good hemostasis with a small piece of Surgicel left. The residual Surgicel was left in the gallbladder fossa. The Luiz-cut core biopsy was placed through the abdominal wall directly into the liver, elevating it upward to avoid any path through the liver. Good core biopsy obtained. It was pulled up a little bit and then removed completely and passed off. Satisfactorily removed the core biopsy on the Telfa. The liver surface was cauterized with the cautery turned up to 50. Good hemostasis was noted. Copious irrigation lateral to the liver and subhepatic space clear. Area reinspected and no signs of any active bleeding now. Clips were noted to be in placed on cystic duct/cystic artery stumps. The residual piece of Surgicel was left in the gallbladder fossa adjacent to the area of the capsule used earlier but had good hemostasis. It was felt there was no benefit of drain placement. At this point, the pneumoperitoneum decompressed. The fascia with #1 Vicryl was closed with 10/11 side secured. Pneumoperitoneum decompressed. Wounds irrigated out. Skin incision closed with 4-0 Vicryl. Steri-Strips and sterile dressing applied. The patient tolerated the procedure well. There were no immediate complications.
== END 2024-03-14 15:09 | disposition home or self-care (01) ==
LOC: SDC 10:01
PROVIDERS: ATTEND Surgery
DX: K80.10 Calculus of gallbladder with chronic cholecystitis without obstruction (principal); K74.60 Unspecified cirrhosis of liver
CPT/HCPCS: 36415; 80048; J0694; J1100; J1885; J2405; J2704; J3010